=== PATIENT | female | born 2000 | race Caucasian/White ===

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

== ENCOUNTER 2021-02-18 13:25 | Emergency (ER) | payer BC, SELFPAY ==
[2021-02-18 16:06] LABS: Urine Blood Negative (Negative); Urine Glucose Negative (Negative); Urine Protein Trace (Negative); Urine Specific Gravity >=1.030 (1.005-1.030)
[2021-02-18 16:19] LABS: Absolute Lymphocytes (CBC) 1.7 K/uL (0.7-4.9); Basophils % 0.5 % (0-1.3); Hematocrit 39.7 % (36.0-45.0); Lymphocytes % 21.1 % (15.3-44.8); MPV 9.1 fL (7.6-11.3); RBC Red Blood Cell Count 4.57 M/uL (3.86-4.86)
[2021-02-18 16:24] LABS: Urine Specific Gravity/Preg >1.030 (1.005-1.030)
--- NOTE | 2021-02-18 16:24 | RAD REPORT ---
EXAM DESCRIPTION: Rick Single View02/18/2021 4:18 pm CLINICAL HISTORY: Palpitations COMPARISON: none FINDINGS: The lungs appear clear of acute infiltrate. The heart is normal size IMPRESSION: No acute abnormalities displayed
[2021-02-18 16:27] LABS: Protime INR 1.12
[2021-02-18] MEDS ORDERED: NA CHLORIDE 0.9% 1,000 ML ONE (16:29)
[2021-02-18 16:31] LABS: Barbiturates NEGATIVE (NEGATIVE); Benzodiazepines NEGATIVE (NEGATIVE); Cocaine NEGATIVE (NEGATIVE); METHAMPHETAM NEGATIVE (NEGATIVE); Methadone NEGATIVE (NEGATIVE); Opiates NEGATIVE (NEGATIVE); Phencyclidine NEGATIVE (NEGATIVE); THC Cannibis POSITIVE (NEGATIVE)
[2021-02-18 16:43] LABS: ALT/SGPT 19 U/L (12-78); AST/SGOT 10 U/L (15-37); Albumin 4.5 g/dL (3.4-5.0); Alkaline Phosphatase 61 U/L (45-117); BUN Blood Urea Nitrogen 12 mg/dL (7-18); Bicarbonate 27 mmol/L (21-32); Bilirubin Direct 0.1 mg/dL (0-0.2); Bilirubin Total 0.6 mg/dL (0.2-1.0); Glucose Level 85 mg/dL (74-106); Magnesium 2.1 mg/dL (1.8-2.4); Potassium 3.7 mmol/L (3.5-5.1); Protein, Total 8.1 g/dL (6.4-8.2); Sodium Level 139 mmol/L (136-145); Thyroid Stimulating Hormone 0.956 uIU/mL (0.360-3.740); Troponin (Emerg Dept Use Only) < 0.02 ng/mL (0.0-0.045)
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
[2021-02-18] MEDS ORDERED: ONDANSETRON 4 MG/2 ML VIAL ONE (17:44)
[2021-02-18 18:25] VITALS: BP 127/72; O2SAT 100
[2021-02-18 19:02] VITALS: TEMP 97.4
== END 2021-02-18 18:04 | disposition home or self-care (01) ==
LOC: ER 13:25
DX: F12.10 Cannabis abuse, uncomplicated (principal); R00.2 Palpitations
CPT/HCPCS: 85025; 80048; 36415; 83735; 81025; 85610; 80076; 80307 ×8; 84443; 81003; 84484; 71045; J7030; J2405; 96361; 96374; 99284

== ENCOUNTER 2021-09-22 13:59 | Emergency (ER) | payer BC ==
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
[2021-09-22 15:57] LABS: SARS-COV-2 RT PCR NEGATIVE (NEGATIVE)
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
[2021-09-22 16:54] VITALS: BP 112/63; TEMP 97.7; O2SAT 100
== END 2021-09-22 16:47 | disposition home or self-care (01) ==
LOC: ER 13:59
DX: R21 Rash and other nonspecific skin eruption (principal); Z20.822 Contact with and (suspected) exposure to COVID-19
CPT/HCPCS: 87070; 87081; 0240U; 99282

== ENCOUNTER 2022-08-25 18:58 | Emergency (ER) | payer BC ==
[2022-08-25] MEDS ORDERED: NA CHLORIDE 0.9% 1,000 ML ONE (20:25)
[2022-08-25 20:36] LABS: Absolute Lymphocytes (CBC) 1.3 K/uL (0.7-4.9); Lymphocytes % 12.8 % (15.3-44.8); MPV 8.1 fL (7.6-11.3); RBC Red Blood Cell Count 4.31 M/uL (3.86-4.86)
[2022-08-25 20:46] LABS: Urine Blood Negative (Negative); Urine Glucose Negative (Negative); Urine Protein Negative (Negative); Urine Specific Gravity >=1.030 (1.005-1.030); Urine pH 5.5 (5.0-7.0)
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
[2022-08-25 21:22] LABS: Potassium 3.4 mmol/L (3.5-5.1)
--- OUTSIDE RECORDS SUMMARY | 2022-08-25 22:18 | XMS REPORT | Continuity of Care Document ---
:2000 Author Organization [facility] Address [facility] [address] [place] [address] Care Team Providers Name Role Phone Victoriano Paez MD Attending Clinician VICTORIANO PAEZ Attending Clinician Unavailable VICTORIANO PAEZ Attending Clinician Unavailable ANNMARIE SAUL Attending Clinician Unavailable Payers Payer Name Policy Type Policy Number Effective Date Expiration Date S ource Problems Condition Condition Condition Status Onset Resolution Last Treating Co mments Source Name Details Category Date Date Treatment Clinician Date No known No known Disease Unive rs active active ity of problems problems [facility] Allergies, Adverse Reactions, Alerts Allergy Allergy Status Severity Reaction(s) Onset Inactive Treating Comm ents Source Name Type Date Date Clinician NO KNOWN Drug Active Univers ALLERGIE Class ity of [facility] Social History Social Habit Start Date Stop Date Quantity Comments Source Exposure to Not sure [facility] SARS-CoV-2 (event) [facility] Tobacco use and 2021-05-09 2021-05-09 Never used [facility] exposure 00:00:00 00:00:00 [facility] Tobacco Comment 2021-04-29 2021-04-29 vapes [facility] 00:00:00 00:00:00 [facility] Sex Assigned At [birth year] [facility] 00:00:00 00:00:00 [facility] Smoking Status Start Date Stop Date Source Never smoker [facility] Medications Ordered Filled Start Stop Current Ordering Indication Dosage Frequency Signature Comments Components Source Medication Medication Date Date Medication? Clinician (SIG) Name Name No known No Univers medications [facility] No known No [facility] medications [facility] No known No Univers medications [facility] No known No Univers medications [facility] Vital Signs Vital Name Observation Time Observation Value Comments Source Systolic blood 2021-04-29 21:30:00 108 [facility]Hg[facility] 2021-04-29 21:30:00 63 mm[Hg] [facility] rate 2021-04-29 21:30:00 76 /min [facility] Body weight 2021-04-29 21:30:00 83.008 kg [facility] Systolic blood 2021-03-18 15:35:00 100 mm[facility]Hg[facility] Diastolic blood 2021-03-18 15:35:00 67 mm[Hg] [facility] Heart rate 2021-03-18 15:35:00 68 /min [facility] Body height 2021-03-18 15:35:00 165.1 cm [facility] Body weight 2021-03-18 15:35:00 83.008 kg [facility] BMI 2021-03-18 15:35:00 30.45 kg/m2 [facility] Procedures Procedure Date / Time Performed Performing Clinician Sourc e XR CERVICAL SPINE 2 2021-03-18 16:46:48 Victoriano Paez [facility] Encounters Start End Encounter Admission Attending Care Care Encounter Source Date/Time Date/Time Type Type Clinicians Facility Department ID 2021-04-29 2021-04-29 Office Philippe [facility] [id number] Univers 16:25:12 16:50:55 Visit Victoriano Camacho [id number] cj [facility] [id number] [facility] eleonora Summersio [id number] [facility]ical [facility] [address] 2021-04-29 2021-04-29 Outpatient VICTORIANO ACOSTA [facility] [id number] Univers 16:20:00 16:20:00 VICTORIANO PAEZ [facility] 2021-04-15 2021-04-15 Outpatient Stanley SAUL [facility] [id number] Univers 11:30:00 11:30:00 ANNMARIE corona o f [facility] 2021-03-18 2021-03-18 [facility] Philippe [facility] [id number] [facility] 11:25:44 23:59:00 [id number] [facility] [place] [id number] [place] [address] 2021-03-18 2021-03-18 Office Philippe [facility] [id number] [facility] 10:25:56 11:06:51 Visit Victoriano Camacho [id number] [facility] [id number] [facility] Professio [id number] Ma dical nal [address] 2021-03-18 2021-03-18 Outpatient R VICTORIANO PAEZ [facility] [id number] [facility] 10:00:00 10:00:00 VICTORIANO PAEZ [facility] Results Test Description Test Time Test Comments Results Result Sour e Comments XR CERVICAL SPINE 2021-02-24 On the lateral Un iversity of 2 VW 4 view, cervical [facility] 17:03:18 spine can be Branch visualized to [...] of the cervical spine wereobtained. COMPARISON: None. [facility], Radiant Results Inft User - 03/18/2021 12:04 [...]
[2022-08-25] MEDS ORDERED: POTASSIUM 25 MEQ EFFERV TAB ONE (22:21)
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
[2022-08-25 22:57] VITALS: TEMP 99.1; O2SAT 100
[2022-08-25 23:09] VITALS: BP 105/61
--- NOTE | 2022-08-28 06:04 | EKG ---
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
== END 2022-08-25 22:37 | disposition home or self-care (01) ==
LOC: ER 18:58
DX: O9A.211 Injury, poisoning and certain other consequences of external causes complicating pregnancy, first trimester (principal); S00.83XA Contusion of other part of head, initial encounter; R55 Syncope and collapse; Z3A.12 12 weeks gestation of pregnancy
CPT/HCPCS: 93005; 85025; 80048; 36415; 86900; 86901; 84702; 81003; 70450; 72125; 96360; 99284; J7030

== ENCOUNTER 2022-09-02 19:12 | Emergency (ER) | payer BC ==
--- OUTSIDE RECORDS SUMMARY | 2022-09-02 19:15 | XMS REPORT | Continuity of Care Document ---
:2000 Author Organization [facility] Address [address] [place] [address] [address] [place] [address] Care Team Providers Name Role Phone Victoriano [...] rs active active ity of problems problems [facility] Allergies, Adverse Reactions, Alerts Allergy Allergy Status Severity Reaction(s) Onset Inactive Treating Comm ents Source Name Type Date Date Clinician NO KNOWN Drug Active [facility] Social History Social Habit Start Date Stop Date Quantity Comments Source Exposure to Not sure [facility] SARS-CoV-2 (event) [facility] Tobacco use and 2021-05-09 2021-05-09 Never used [facility] exposure 00:00:00 00:00:00 [facility] Tobacco Comment 2021-04-29 2021-04-29 vapes [facility] 00:00:00 00:00:00 [facility] Sex Assigned At [birth year] [facility] 00:00:00 00:00:00 [facility] Smoking Status Start Date Stop Date Source Never smoker [facility] Medications Ordered Filled Start Stop Current Ordering Indication Dosage Frequency Signature Comments Components Source Medication Medication Date Date Medication? Clinician (SIG) Name Name No known No Univers medications [facility] No known No [facility] medications [facility] No known No [facility] medications [facility] No known No [facility] medications [facility] Vital Signs Vital Name Observation Time Observation Value Comments Source Systolic blood 2021-04-29 21:30:00 108 mm[facility]Hg[facility] 2021-04-29 21:30:00 63 [facility]Hg[facility] 2021-04-29 21:30:00 76 /min [facility] Body weight 2021-04-29 21:30:00 83.008 kg [facility] Systolic blood 2021-03-18 15:35:00 100 mm[Hg] [facility] Diastolic blood 2021-03-18 15:35:00 67 mm[Hg] [facility] 2021-03-18 15:35:00 68 /min [facility] Body height 2021-03-18 15:35:00 165.1 cm [facility] Body weight 2021-03-18 15:35:00 83.008 kg [facility] BMI 2021-03-18 15:35:00 30.45 kg/m2 [facility] Procedures Procedure Date / Time Performed Performing Clinician Sourc e XR CERVICAL SPINE 2 2021-03-18 16:46:48 Victoriano Paez [facility] Encounters Start End Encounter Admission Attending Care Care Encounter Source Date/Time Date/Time Type Type Clinicians Facility Department ID 2021-04-29 2021-04-29 Office Philippe LATIARA [id number] [facility] 16:25:12 16:50:55 Visit Victoriano Camacho [id number] [facility] [id number] Jose Luis s Professio [id number] In dical nal [address] 2021-04-29 2021-04-29 Outpatient VICTORIANO ACOSTA [facility] [id number] [facility] 16:20:00 16:20:[address] [facility] [place] [place] 2021-04-15 2021-04-15 Outpatient Stanley SAUL [facility] [id number] Univers 11:30:00 11:30:00 ANNMARIE corona o f [facility] 2021-03-18 2021-03-18 Hospital Philippe [facility] [id number] Univers 11:25:44 23:59:00 Encounter Victoriano Camacho [id number] [facility] [id number] [facility] [id number] [facility] [address] 2021-03-18 2021-03-18 Office Philippe [facility] [id number] Univers 10:25:56 11:06:51 Visit Victoriano Camacho [id number] ity [facility] [id number] [facility] Professio [id number] In dical nal [address] [facility] 2021-03-18 2021-03-18 Outpatient R VICTORIANO PAEZ [facility] [id number] Univers 10:00:00 10:00:00 VICTORIANO PAEZ [facility] Results Test Description Test Time Test Comments Results Result Sourc e Comments XR CERVICAL SPINE 2021-02-24 On the lateral Un iversity of 2 VW 4 view, cervical [facility] 17:03:18 spine can be Branch visualized to [...] of the cervical spine wereobtained. COMPARISON: None. [facility], Radiant Results Inft - 03/18/2021 12:04 PM CDTEXAMINATION: XR CERVICAL [...]
[2022-09-02 20:34] LABS: Absolute Lymphocytes (CBC) 1.8 K/uL (0.7-4.9); Lymphocytes % 18.3 % (15.3-44.8); MCV 86.5 fL (80-100); MPV 8.3 fL (7.6-11.3); RBC Red Blood Cell Count 4.16 M/uL (3.86-4.86)
[2022-09-02 20:38] LABS: Protime INR 1.02
--- NOTE | 2022-09-02 20:59 | RAD REPORT ---
EXAM DESCRIPTION: US - Matter Mert Tm 1 - 09/02/2022 8:48 pm CLINICAL HISTORY: VAGINAL BLEEDING Early . COMPARISON: <Comparisons> FINDINGS: A single gestational sac is seen within the uterus. The shape of the sac is within normal limits for gestational age. Within the sac is a single fetus with femur length of 1.3 cm, correlating to estimated gestational age of 13 weeks 5 days. Estimated date of delivery is 03/14/2023. Heart rate is 160 BPM. Developing posterior placenta. 2 cm subchorionic bleed likely present. The maternal adnexa and left ovary within normal limits. Normal Doppler blood flow was demonstrated t he left ovary. Right ovary was obscured by bowel gas. IMPRESSION: Single live early intrauterine gestation with estimated gestational age of 13 weeks 5 da ys, MELISSA 03/14/2023. 2 cm subchorionic bleed.
[2022-09-02 21:07] LABS: Urine Blood 2+ (Negative); Urine Glucose Negative (Negative); Urine Protein Negative (Negative); Urine Specific Gravity >=1.030 (1.005-1.030)
[2022-09-02 21:23] LABS: Urine Crystals Unidentified Few /HPF (None Seen); Urine Mucus Slight /HPF (None Seen); Urine RBC >50 /HPF (None Seen)
--- NOTE | 2022-09-02 21:36 | EDPHYS ---
Physician Documentation [facility] Name: Katerin Nix Age: 22 yrs Sex: Female : 2000 Arrival Date: 09/02/2022 Time: 19:16 Bed 13 Private MD: ED Physician Rocio Hammond HPI: 09/02 20:00 This 22 yrs old Female presents to ER via Ambulatory with complaints of cp Vaginal Bleeding, + Preg <12wks, Abdominal Cramping. 20:00 The patient presents to the emergency department with vaginal bleeding, that is heavy, cp reports using 3 pads or tampons per day. The estimated gestational age is 13 weeks. 20:00 course: care: private OB physician, Leakage of Fluid: none cp appreciated, Ultrasound: the patient had an ultrasound, which was normal. 20:00 Associated signs and symptoms: Pertinent positives: abdominal pain, Pertinent cp negatives: fever, vomiting. 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 - Social history:: Smoking status: Reported history of juuling and/or vaping. ROS: 20:05 Constitutional: Negative for body aches, chills, fever, poor PO intake. cp 20:05 Eyes: Negative for injury, pain, redness, and discharge. cp 20:05 ENT: Negative for drainage from ear(s), ear pain, sore throat, difficulty swallowing, difficulty handling secretions. 20:05 Cardiovascular: Negative for chest pain. 20:05 Respiratory: Negative for cough, shortness of breath, wheezing. 20:05 Abdomen/GI: Positive for abdominal cramps. 20:05 Back: Negative for pain at rest, pain with movement. 20:05 : Positive for vaginal bleeding, Negative for urinary symptoms. 20:05 Neuro: Negative for dizziness, headache, syncope, weakness. 20:05 All other systems are negative. Exam: 20:10 Constitutional: The patient appears in no acute distress, alert, awake, non-toxic, well cp developed, well nourished. 20:10 Head/Face: Normocephalic, atraumatic. cp 20:10 Eyes: Periorbital structures: appear normal, Conjunctiva: normal, no exudate, no injection, Sclera: no appreciated abnormality, Lids and lashes: appear normal, bilaterally. 20:10 ENT: External ear(s): are unremarkable, Nose: is normal, Mouth: Lips: moist, Oral mucosa: pink and intact, moist, Posterior pharynx: Airway: no evidence of obstruction, patent. 20:10 Chest/axilla: Inspection: normal. 20:10 Cardiovascular: Rate: normal, Rhythm: regular. 20:10 Respiratory: the patient does not display signs of respiratory distress, Respirations: normal, no use of accessory muscles, no retractions, labored breathing, is not present. 20:10 Abdomen/GI: Inspection: abdomen appears normal, Palpation: abdomen is soft and non-tender, in all quadrants. 20:10 Back: pain, is absent, ROM is normal. 21:34 : Pelvic Exam: External exam: is normal, Speculum exam: mild bleeding, os that is cp closed, discharge, bloody, the nurse was present for the exam. Vital Signs: 19:42 BP 105 / 50; Pulse 83; Resp 16; Temp 98.6; Pulse Ox 99% ; Weight 96.62 kg; Height 5 ft. jh5 5 in. (165.10 cm); Pain 6/10; 20:35 BP 102 / 55; Pulse 72; Resp 18 S; Pulse Ox 100% on R/A; as6 21:43 BP 120 / 72; Pulse 76; Resp 16; Pulse Ox 100% on R/A; jb4 19:42 Body Mass Index 35.44 (96.62 kg, 165.10 cm) jh5 MDM: 19:39 Patient medically screened. cp 20:00 Differential diagnosis: STD, threatened Ab, inevitable Ab, complete Ab, retained Ab. cp 21:33 Data reviewed: vital signs, nurses notes, lab test result(s), radiologic studies, cp ultrasound. Counseling: I had a detailed discussion with the patient and/or guardian regarding: the historical points, exam findings, and any diagnostic results supporting the discharge/admit diagnosis, lab results, radiology results, the need for outpatient follow up, an OB/Gyne specialist. ED course: Patient is Rh positive as noted from blood work from previous visit. Discussed lab work and US findings showing viable IUP and subchorionic bleed. Will discharge to home for continued monitoring and pelvic rest instructions. 09/02 19:41 Order name: Urine Microscopic Only; Complete Time: 21:36 09/02 21:36 Interpretation: Normal except: URBC >50. 09/02 19:58 Order name: Basic Metabolic Panel cp 09/02 19:58 Order name: CBC with Diff; Complete Time: 21:01 09/02 21:01 Interpretation: Reviewed. 09/02 19:58 Order name: Quantitative Hcg cp 09/02 20:13 Order name: PT-INR; Complete Time: 21:01 cp 09/02 20:13 Order name: Ptt, Activated; Complete Time: 21:01 cp 09/02 19:41 Order name: Urine Dipstick-Ancillary (obtain specimen); Complete Time: 21:07 cp 09/02 19:41 Order name: Urine Test (obtain specimen); Complete Time: 21:07 09/02 19:58 Order name: IV Saline Lock; Complete Time: 20:24 09/02 20:50 Order name: Matter Eval Tm 1; Complete Time: 21:01 EDMS 09/02 21:07 Order name: Urine Dipstick-Ancillary; Complete Time: 21:36 EDMS 09/02 19:58 Order name: Labs collected and sent; Complete Time: 20:24 09/02 19:58 Order name: NPO; Complete Time: 20:24 09/02 20:13 Order name: Pelvic Exam Setup; Complete Time: 20:39 cp Administered Medications: 21:14 Drug: Zofran (Ondansetron) 4 mg Route: IVP; Site: left antecubital; as6 Disposition Summary: 09/02/22 21:36 Discharge Ordered Location: Home cp Problem: new cp Symptoms: have improved cp Condition: Stable cp Diagnosis - Threatened cp Followup: cp - With: Private Physician - When: 2 - 3 days - Reason: Recheck today's complaints Discharge Instructions: - Discharge Summary Sheet cp - Care cp - Threatened Miscarriage cp - Vaginal Bleeding During , First Trimester cp - Activity Restriction During cp - Subchorionic Hematoma cp Forms: - Medication Reconciliation Form cp - Thank You Letter cp - Antibiotic Education cp - Prescription Opioid Use cp Signatures: Dispatcher [employer] EDMS Dax Rodriguez PA PA cp Rees, Jessica, RN RN jh5 Willam Cárdenas RN RN as6 Corrections: (The following items were deleted from the chart) 20:50 19:59 Transvaginal Ob+US.RAD.BRZ ordered. EDMS EDMS
--- NOTE | 2022-09-02 21:36 | ER ---
Nurse's Notes [facility] Name: Katerin Nix Age: 22 yrs Sex: Female : 2000 Arrival Date: 09/02/2022 Time: 19:16 Bed 13 Private MD: Diagnosis: Threatened Presentation: 09/02 19:42 Chief complaint: Patient states: cramps started 2 days ago, vaginal bleeding x1 hour jh5 going with heavy and thick bleeding on pad 3 in 1 hour. Coronavirus screen: Vaccine status: Patient reports being unvaccinated. Client denies travel out of the [place] in the last 14 days. Ebola Screen: Patient negative for fever greater than or equal to 101.5 degrees Fahrenheit, and additional compatible Ebola Virus Disease symptoms Patient denies exposure to infectious person. Patient denies travel to an Ebola-affected area in the 21 days before illness onset. Initial Sepsis Screen: Does the patient meet any 2 criteria? No. Patient's initial sepsis screen is negative. Does the patient have a suspected source of infection? No. Patient's initial sepsis screen is negative. Risk Assessment: Do you want to hurt yourself or someone else? Patient reports no desire to harm self or others. 19:42 Method Of Arrival: Ambulatory [facility] 19:42 Acuity: MAYRA 3 jh5 20:25 Onset of symptoms was September 02, 2022. as6 Triage Assessment: 19:44 General: Appears in no apparent distress. General: Appears uncomfortable, Behavior is jh5 calm, cooperative, appropriate for age. Pain: Complains of pain in abdomen. : Reports cramping, vaginal bleeding that is. 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 - Social history:: Smoking status: Reported history of juuling and/or vaping. Screenin:25 Abuse screen: Denies threats or abuse. Denies injuries from another. Nutritional as6 screening: No deficits noted. Tuberculosis screening: No symptoms or risk factors identified. Fall Risk None identified. Assessment: 20:34 General: Appears in no apparent distress. Behavior is calm, cooperative. Pain: as6 Complains of pain in abdomen Quality of pain is described as crampy. : Reports cramping, vaginal bleeding that is bright red, heavy flow. 21:43 Reassessment: Patient appears in no apparent distress at this time. Patient and/or jb4 family updated on plan of care and expected duration. Pain level reassessed. Patient is alert, oriented x 3, equal unlabored respirations, skin warm/dry/pink. Vital Signs: 19:42 BP 105 / 50; Pulse 83; Resp 16; Temp 98.6; Pulse Ox 99% ; Weight 96.62 kg; Height 5 ft. jh5 5 in. (165.10 cm); Pain 6/10; 20:35 BP 102 / 55; Pulse 72; Resp 18 S; Pulse Ox 100% on R/A; as6 21:43 BP 120 / 72; Pulse 76; Resp 16; Pulse Ox 100% on R/A; jb4 19:42 Body Mass Index 35.44 (96.62 kg, 165.10 cm) jh5 ED Course: 19:16 Patient arrived in ED. ja2 19:18 Dax Rodriguez PA is PHCP. cp 19:18 Rocio Hammond MD is Attending Physician. cp 19:27 Willam Cárdenas, HÉCTOR is Primary Nurse. as6 19:44 Triage completed. jh5 19:44 Arm band placed on right wrist. jh5 20:24 Inserted saline lock: 20 gauge in left antecubital area, using aseptic technique. Blood as6 collected. 20:25 Placed in gown. Bed in low position. Call light in reach. Side rails up X 1. as6 20:50 Matter Eval Tm 1 In Process Unspecified. EDMS 21:07 Urine Microscopic Only Sent. as6 21:31 Assist provider with pelvic exam: Set up pelvic tray. Performed by Dax CABALLERO as6 Patient tolerated well. 21:43 IV discontinued, intact, bleeding controlled, No redness/swelling at site. Pressure jb4 dressing applied. Administered Medications: 21:14 Drug: Zofran (Ondansetron) 4 mg Route: IVP; Site: left antecubital; as6 Medication: 21:43 VIS not applicable for this client. jb4 Outcome: 21:36 Discharge ordered by . cp 21:43 Discharged to home ambulatory. jb4 21:43 Condition: stable 21:43 Discharge instructions given to patient, Instructed on discharge instructions, follow up and referral plans. Demonstrated understanding of instructions, follow-up care. 21:44 Patient left the ED. jb4 Signatures: Dispatcher [employer] EDMS Dax Rodriguez PA PA cp Bryson, James, RN RN jb4 Tamara Puentes ja2 Tamara Hager, RN RN jh5 Willam Cárdenas RN RN as6
[2022-09-02 21:59] LABS: Potassium 3.6 mmol/L (3.5-5.1)
[2022-09-02 23:09] VITALS: TEMP 98.6
[2022-09-02 23:22] VITALS: O2SAT 100
[2022-09-02 23:23] VITALS: BP 120/72
== END 2022-09-02 21:44 | disposition home or self-care (01) ==
LOC: ER 19:12
DX: O20.0 Threatened abortion (principal); Z3A.13 13 weeks gestation of pregnancy; Z87.891 Personal history of nicotine dependence
CPT/HCPCS: 36415; 76801; 80048; 81003; 81015; 84702; 85025; 85610; 85730; 96374; 99284

== ENCOUNTER 2022-09-24 22:04 | Emergency (ER) | payer BC ==
--- OUTSIDE RECORDS SUMMARY | 2022-09-24 22:18 | XMS REPORT | Continuity of Care Document ---
:2000 Author Organization [facility] t Address [address] [place] [address] Dr. Nicole. [address] [place] [address] Care Team Providers Name Role Phone ANTOINETTE RUSS Primary Care Physician Unavailable GISEL ASCENCIO Attending Clinician Unavailable Pcp, Patient Does Not Have A Attending Clinician [phone] Victoriano Paez MD Attending Clinician VICTORIANO PAEZ Attending Clinician Unavailable VICTORIANO PAEZ Attending Clinician Unavailable ANNMARIE SAUL Attending Clinician Unavailable Payers Payer Name Policy Type Policy Number Effective Date Expiration Date S [facility] [id number] 2020 00:00:00 Problems Condition Condition Condition Status Onset Resolution Last Treating Co mments Source Name Details Category Date Date Treatment Clinician Date No known No known Disease Unive rs active active ity of problems problems [facility] Allergies, Adverse Reactions, Alerts Allergy Allergy Status Severity Reaction(s) Onset Inactive Treating Comm ents Source Name Type Date Date Clinician NO KNOWN Drug Active Univers ALLERGIE Class ity of S [facility] Social History Social Habit Start Date Stop Date Quantity Comments Source Exposure to Not sure University SARS-CoV-2 [facility] (event) [place] Tobacco use and 2021-04-29 2021-04-29 Smokeless tobacco Un iversity of exposure 00:00:00 00:00:00 non-user [facility] Tobacco Comment 2021-04-29 2021-04-29 vapes Universit y of 00:00:00 00:00:00 [facility] Sex Assigned At 2000 2000 Universit y of 00:00:00 00:00:00 [facility] Smoking Status Start Date Stop Date Source Never smoked tobacco [facility] Medications Ordered Filled Start Stop Current Ordering Indication Dosage Frequency Signature Comments Components Source Medication Medication Date Date Medication? Clinician (SIG) Name Name No known No No known Unive rs medications 7-05 medication it y of 16:30: s [address] No known No Univers medications [facility] No known No Univers medications [facility] No known No Univers medications [facility] No known No Univers medications [facility] Vital Signs Vital Name Observation Time Observation Value Comments Source Systolic blood 2021-04-29 21:30:00 108 mm[Hg[facility] 2021-04-29 21:30:00 63 mm[Hg] Unive [facility] Heart rate 2021-04-29 21:30:00 76 /min [facility] Body weight 2021-04-29 21:30:00 83.008 kg [facility] Systolic blood 2021-03-18 15:35:00 100 mm[Hg] Univer [facility] Diastolic blood 2021-03-18 15:35:00 67 mm[Hg] Unive [facility] Heart rate 2021-03-18 15:35:00 68 /min [facility] Body height 2021-03-18 15:35:00 165.1 cm [facility] Body weight 2021-03-18 15:35:00 83.008 kg [facility] BMI 2021-03-18 15:35:00 30.45 kg/m2 [facility] Procedures Procedure Date / Time Performed Performing Clinician Lisette e XR CERVICAL SPINE 2 2021-03-18 16:46:48 Victoriano Paez [facility] Encounters Start End Encounter Admission Attending Care Care Encounter Source Date/Time Date/Time Type Type Clinicians Facility Department ID 2022-09-26 2022-09-26 Outpatient Stanley ASCENCIO [facility] [id number] Univers 14:45:00 14:45:00 GISEL [facility] 2022-09-22 2022-09-22 Telephone Pcp, 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 [id number] it y of Does [facility] [id number] MATERNAL [id number] Med ical & CHILD [address] [place] [address] 2021-04-29 2021-04-29 [facility] [id number] Univers 16:25:12 16:50:55 Visit Victoriano Rufino Camacho [id number] it[id number] [phone] Ak dicla nal [address] [place] [address] 2021-04-29 2021-04-29 Outpatient R VICTORIANO PAEZ [facility] [id number] Univers 16:20:00 16:20:00 VICTORIANO PAEZ [facility] 2021-04-15 2021-04-15 Outpatient Stanley SAUL [facility] [id number] Univers 11:30:00 11:30:00 CHILVANA victor manuely o f [facility] 2021-03-18 2021-03-18 [facility] [id number] Univers 11:25:44 23:59:00 Encounter Victoriano Rufino Camacho [id number] [id number] [id number] [facility] [address]07 [place] 2021-03-18 2021-03-18 [facility] [id number] Univers 10:25:56 11:06:51 Visit Victoriano Camacho [id number] it[id number] [id number] Ak dical nal [address] [place] [address] 2021-03-18 2021-03-18 Outpatient VICTORIANO ACOSTA [facility] [id number] Univers 10:00:00 10:00:00 VICTORIANO PAEZ [facility] Results Test Description Test Time Test Comments Results Result [facility] e Comments XR CERVICAL SPINE 2021-02-24 On the lateral Un iversity of 2 VW 4 view, cervical [place] [facility] 17:03:18 spine can be Branch visualized [...] of the cervical spine wereobtained. COMPARISON: None. [facility], Radiant Results Inft User - 03/18/2021 [...]
[2022-09-24 22:58] LABS: Urine Blood Trace-lysed (Negative); Urine Glucose Negative (Negative); Urine Protein Negative (Negative); Urine Specific Gravity >=1.030 (1.005-1.030); Urine pH 5.5 (5.0-7.0)
[2022-09-24 23:58] LABS: Urine Specific Gravity/Preg >1.030 (1.005-1.030)
--- NOTE | 2022-09-25 00:01 | ER ---
Nurse's Notes [facility] Name: Katerin Nix Age: 22 yrs Sex: Female : 2000 Arrival Date: 09/24/2022 Time: 22:07 Bed 8 Private MD: Diagnosis: 18 weeks gestation of Presentation: 09/24 22:17 Chief complaint: Patient states: About an hour ago i started having some vaginal kd3 bleeding. this is my first . Parent and/or Guardian states: She's already had some complications with this . she has been having lower abdominal pain that she says is like pressure. She said that about an hour ago she wiped after using the bathroom and she had blood on the toilet paper. She is right at 16 weeks. Chief complaint: Parent and/or Guardian states: They told her at her last visit that she had cysts. Coronavirus screen: Vaccine status: Patient reports being unvaccinated. Ebola Screen: No symptoms or risks identified at this time. Initial Sepsis Screen: Does the patient meet any 2 criteria? No. Patient's initial sepsis screen is negative. Does the patient have a suspected source of infection? No. Patient's initial sepsis screen is negative. Risk Assessment: Do you want to hurt yourself or someone else? Patient reports no desire to harm self or others. Onset of symptoms was September 24, 2022. 22:17 Method Of Arrival: Ambulatory kd3 22:17 Acuity: MAYRA 3 kd3 Triage Assessment: 22:21 General: Appears in no apparent distress. Behavior is calm, cooperative. Pain: kd3 Complains of pain in suprapubic area, right lower quadrant and left lower quadrant. Neuro: Level of Consciousness is awake, alert, obeys commands, Oriented to person, place, time, situation. Respiratory: Airway is patent Trachea midline Respiratory effort is even, unlabored. GI: Abdomen is non-distended, Reports lower abdominal pain. 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 - Social history:: Smoking status: unknown. Screenin:14 Abuse screen: Denies threats or abuse. Denies injuries from another. ha1 22:14 Nutritional screening: No deficits noted. Tuberculosis screening: No symptoms or risk ha1 factors identified. Fall Risk None identified. Assessment: 22:14 General: Appears comfortable, Behavior is calm, cooperative. Pain: Complains of pain in ha1 lower abdominal Pain does not radiate. Pain. Neuro: Level of Consciousness is awake, alert, obeys commands, Oriented to person, place, time, situation. Cardiovascular: Capillary refill < 3 seconds Patient's skin is warm and dry. Respiratory: Airway is patent Trachea midline Respiratory effort is even, unlabored, Respiratory pattern is regular, symmetrical. GI: No signs and/or symptoms were reported involving the gastrointestinal system. Abdomen is round non-distended, Bowel sounds present X 4 quads. Abd is soft and non tender X 4 quads. : Urine is clear, Reports vaginal bleeding that is light flow. EENT: No deficits noted. No signs and/or symptoms were reported regarding the EENT system. Derm: Skin is pink, warm \T\ dry. Musculoskeletal: Circulation, motion, and sensation intact. Range of motion: intact in all extremities. 23:15 Reassessment: Patient and/or family updated on plan of care and expected duration. Pain ha1 level reassessed. Patient is alert, oriented x 3, equal unlabored respirations, skin warm/dry/pink. Vital Signs: 22:23 BP 106 / 49; Pulse 86; Resp 17; Temp 98.5(O); Pulse Ox 100% on R/A; Weight 96.62 kg; kd3 Height 5 ft. 5 in. (165.10 cm); Pain 7/10; 23:17 BP 104 / 58; Pulse 85; Resp 16 S; Pulse Ox 100% on R/A; ha1 12 00:12 BP 123 / 67; Pulse 62; Resp 16; Pulse Ox 100% on R/A; kd3 09/24 22:23 Body Mass Index 35.44 (96.62 kg, 165.10 cm) kd3 ED Course: 09/24 22:07 Patient arrived in ED. bp1 22:09 Tracy Maldonado FNP-C is PHCP. snw 22:09 Dax Darnell MD is Attending Physician. snw 22:14 Patient has correct armband on for positive identification. Placed in gown. Bed in low ha1 position. Call light in reach. Side rails up X 1. Adult w/ patient. 22:17 Chaya Duron, RN is Primary Nurse. kd3 22:21 Triage completed. kd3 22:26 Arm band placed on right wrist. kd3 23:06 Urine Dipstick-Ancillary Sent. ha1 23:06 HCG, Quantitative Sent. ha1 09/25 00:07 OB Limited US In Process Unspecified. EDMS 00:12 No provider procedures requiring assistance completed. Patient did not have IV access kd3 during this emergency room visit. Administered Medications: No medications were administered Medication: 00:13 VIS not applicable for this client. kd3 Outcome: 00:00 Discharge ordered by . snw 00:13 Discharged to home ambulatory. kd3 00:13 Condition: stable 00:13 Discharge instructions given to patient, family, Instructed on discharge instructions, follow up and referral plans. Demonstrated understanding of instructions, follow-up care. 00:13 Patient left the ED. kd3 Signatures: Dispatcher [employer] EDKY Tracy Maldonado, CHIEF FISHERY DIVISION-C CHIEF FISHERY DIVISION-Csnw Elisa [facility]ste[facility] Chaya Duron, RN RN kd3 Cecy Currie, RN RN ha1
--- NOTE | 2022-09-25 00:01 | EDPHYS ---
Physician Documentation [facility] Name: Katerin Nix Age: 22 yrs Sex: Female : 2000 Arrival Date: 09/24/2022 Time: 22:07 Bed 8 Private MD: RADHA Physician Dax Darnell HPI: 09/24 22:41 This 22 yrs old Female presents to ER via Ambulatory with complaints of snw Abdominal Pain, Vaginal Bleeding, + 16 weeks preg. 22:41 The patient presents with vaginal bleeding that is spotting. Onset: The snw symptoms/episode began/occurred suddenly, today. Associated signs and symptoms: Pertinent positives: vaginal bleeding. Severity of symptoms: At their worst the symptoms were very mild. The patient is sexually active. The patient has experienced a previous episode, 3 weeks ago. 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 - Social history:: Smoking status: unknown. ROS: 22:39 Constitutional: Negative for fever, chills, and weight loss, Eyes: Negative for injury, snw pain, redness, and discharge, ENT: Negative for injury, pain, and discharge, Neck: Negative for injury, pain, and swelling, Cardiovascular: Negative for chest pain, palpitations, and edema, Respiratory: Negative for shortness of breath, cough, wheezing, and pleuritic chest pain, Abdomen/GI: Negative for abdominal pain, nausea, vomiting, diarrhea, and constipation, Back: Negative for injury and pain, MS/Extremity: Negative for injury and deformity, Skin: Negative for injury, rash, and discoloration, Neuro: Negative for headache, weakness, numbness, tingling, and seizure, Psych: Negative for depression, anxiety, suicide ideation, homicidal ideation, and hallucinations. 22:39 : Positive for scant vaginal bleeding post void with lower abd pressure today. Pt has experienced this before. qHCG 24,000 three weeks ago. Pt is B positive. Exam: 22:39 Constitutional: This is a well developed, well nourished patient who is awake, alert, snw and in no acute distress. Head/Face: Normocephalic, atraumatic. Eyes: Pupils equal round and reactive to light, extra-ocular motions intact. Lids and lashes normal. Conjunctiva and sclera are non-icteric and not injected. Cornea within normal limits. Periorbital areas with no swelling, redness, or edema. ENT: Nares patent. No nasal discharge, no septal abnormalities noted. Tympanic membranes are normal and external auditory canals are clear. Oropharynx with no redness, swelling, or masses, exudates, or evidence of obstruction, uvula midline. Mucous membranes moist. Neck: Trachea midline, no thyromegaly or masses palpated, and no cervical lymphadenopathy. Supple, full range of motion without nuchal rigidity, or vertebral point tenderness. No Meningismus. Chest/axilla: Normal chest wall appearance and motion. Nontender with no deformity. No lesions are appreciated. Cardiovascular: Regular rate and rhythm with a normal S1 and S2. No gallops, murmurs, or rubs. Normal PMI, no JVD. No pulse deficits. Respiratory: Lungs have equal breath sounds bilaterally, clear to auscultation and percussion. No rales, rhonchi or wheezes noted. No increased work of breathing, no retractions or nasal flaring. Back: No spinal tenderness. No costovertebral tenderness. Full range of motion. Skin: Warm, dry with normal turgor. Normal color with no rashes, no lesions, and no evidence of cellulitis. MS/ Extremity: Pulses equal, no cyanosis. Neurovascular intact. Full, normal range of motion. Neuro: Awake and alert, GCS 15, oriented to person, place, time, and situation. Cranial nerves II-XII grossly intact. Motor strength 5/5 in all extremities. Sensory grossly intact. Cerebellar exam normal. Normal gait. 22:39 Abdomen/GI: Inspection: abdomen appears normal, Bowel sounds: normal, Palpation: mild abdominal tenderness, in the suprapubic area. Vital Signs: 22:23 BP 106 / 49; Pulse 86; Resp 17; Temp 98.5(O); Pulse Ox 100% on R/A; Weight 96.62 kg; kd3 Height 5 ft. 5 in. (165.10 cm); Pain 7/10; 23:17 BP 104 / 58; Pulse 85; Resp 16 S; Pulse Ox 100% on R/A; ha1 09/25 00:12 BP 123 / 67; Pulse 62; Resp 16; Pulse Ox 100% on R/A; kd3 09/24 22:23 Body Mass Index 35.44 (96.62 kg, 165.10 cm) kd3 MDM: 09/24 22:19 Patient medically screened. snw 09/25 00:01 Data reviewed: vital signs, nurses notes. Data interpreted: Pulse oximetry: on room air snw is 100 %. Interpretation: normal. Counseling: I had a detailed discussion with the patient and/or guardian regarding: the historical points, exam findings, and any diagnostic results supporting the discharge/admit diagnosis, lab results, radiology results, the need for outpatient follow up, to return to the emergency department if symptoms worsen or persist or if there are any questions or concerns that arise at home. Special discussion: Based on the patient's Hx, exam, and Dx evaluation, there is no indication for emergent surgery or inpatient Tx. It is understood by the patient/guardian that if the Sx's persist or worsen they need to return immediately for re-evaluation. Based on the history and exam findings, there is no indication for further emergent testing or inpatient evaluation. I discussed with the patient/guardian the need to see the OB Gyne specialist for further evaluation of the symptoms. 09/24 22:58 Order name: Urine Dipstick-Ancillary; Complete Time: 23:02 EDHI 09/24 22:59 Order name: Urine --Ancillary (enter results); Complete Time: 00:00 09/24 23:00 Order name: Urine Dipstick-Ancillary EDHI 09/24 23:00 Order name: HCG, Quantitative; Complete Time: 23:38 EDHI 09/24 22:19 Order name: OB Limited snw Administered Medications: No medications were administered Disposition Summary: 09/25/22 00:00 Discharge Ordered Location: Home snw Condition: Stable snw Diagnosis - 18 weeks gestation of snw Followup: snw - With: Emergency Department - When: As needed - Reason: Worsening of condition Followup: snw - With: Private Physician - When: 1 - 2 days - Reason: Recheck today's complaints, Continuance of care, Re-evaluation by your physician Discharge Instructions: - Discharge Summary Sheet snw - Abdominal Pain During snw - Care snw Forms: - Medication Reconciliation Form snw - Thank You Letter snw - Antibiotic Education snw - Prescription Opioid Use snw Addendum: 09/28/2022 07:53 Co-signature as Attending Physician, Dax Darnell MD I agree with the assessment and c campos plan of care. Signatures: Dispatcher [employer] EDMS Dax Darnell MD MD cha Waters, Shelly, PLASTICS FABRICATOR AND ASSEMBLER-C PLASTICS FABRICATOR AND ASSEMBLER-Csnw Chaya Duron, RN RN kd3 Corrections: (The following items were deleted from the chart) 09/24 23:59 23:25 QUANTITATIVE HCG+C.LAB.BRZ ordered. EDHI EDHI
[2022-09-25 00:27] VITALS: TEMP 98.5; O2SAT 100
[2022-09-25 00:29] VITALS: BP 123/67
--- NOTE | 2022-09-25 19:47 | RAD REPORT ---
EXAM DESCRIPTION: US - OB Limited - 09/25/2022 12:03 am CLINICAL HISTORY: The patient is 22 years old and is Female; ABD CRAMPING, TECHNIQUE: Real-time limited ultrasound of the maternal uterus with image documentation. COMPARISON: No relevant prior studies available. FINDINGS: GESTATIONAL AGE: Gestational age is 18 weeks 1 day based on ultrasound composite. POSITION: Single intrauterine gestation is present. HEART RATE: heart rate 157 bpm. PLACENTA: The placenta is posterior in location. CERVIX: The cervix is closed measuring 3.5 cm. IMPRESSION: Single IUP at 18 weeks 1 day with heart rate 157 bpm. Electronically signed by: Clarisa Kline MD 09/25/2022 12:26 AM RESIDENT CARE ASSOCIATE Due to temporary technical issues with the PACS/Fluency reporting system, reports are being signed by the in house radiologists without review as a courtesy to insure prompt reporting. The interpreting radiologist is fully responsible for the content of the report.
== END 2022-09-25 00:13 | disposition home or self-care (01) ==
LOC: ER 22:04
DX: O26.892 Other specified pregnancy related conditions, second trimester (principal); Z3A.18 18 weeks gestation of pregnancy
CPT/HCPCS: 36415; 76815; 81003; 81025; 84702; 99283

== ENCOUNTER 2023-06-10 22:02 | Emergency (ER) | payer BC, OTHER ==
--- OUTSIDE RECORDS SUMMARY | 2023-06-10 22:08 | XMS REPORT | Continuity of Care Document ---
:2000 Author Organization [facility] t Address [address] [place] [address] [place] [id number] Care Team Providers Name Role Phone KEKE ASCENCIO Primary Care Physician Unavailable GUS MORRELL Attending Clinician Unavailable DAVI MAZARIEGOS Attending Clinician Unavailable Davi Mazariegos MD Attending Clinician Doctor Unassigned, [place] Attending Clinician Unavailable Gus Morrell MD Attending Clinician KENDRA HENAO Attending Clinician Unavailable Akinsinaya Kendra OVALLE Attending Clinician [phone] KRISTIE SMITH Attending Clinician Unavailable Kristie Smith MD Attending Clinician [phone] Ronnie Hernadez MD Attending Clinician Roman Erazo MD Attending Clinician Pool Valladares MD Attending Clinician [phone] GEORGES GALVEZ Attending Clinician Unavailable KEKE ASCENCIO Attending Clinician Unavailable Keke Ascencio CNM Attending Clinician Provider, Homero Patel Attending Clinician Unavailable LabHomero Attending Clinician Unavailable SVETLANA AHN Attending Clinician Unavailable Ultrasound, Amalia Attending Clinician Unavailable Svetlana Ahn MD Attending Clinician Pcp, Patient Does Not Have A Attending Clinician [phone] Victoriano Paez MD Attending Clinician VICTORIANO PAEZ Attending Clinician Unavailable VICTORIANO PAEZ Attending Clinician Unavailable ANNMARIE SAUL Attending Clinician Unavailable KRISTIE SMITH Admitting Clinician Unavailable Kristie Smith MD Admitting Clinician [phone] Payers Payer Name Policy Type Policy Number Effective Date Expiration Date Anurag mcfarlane FORMERLY [facility], 1928–1983 [id number] 2022 [place]ICE [place] ST[place] 00:00:00 Problems Condition Condition Condition Status Onset Resolution Last Treating Co mments Source Name Details Category Date Date Treatment Clinician Date Other Other Disease Active Univers general general 6-21 [place] of counseling [place] and advice and advice 00 Me dical for for Branch contracept contracept melba melba management management Routine Routine Disease Active Univers 5-30 [place] of [place] [facility] Disease Active Univers (spontaneo (spontaneo 5-07 [place] of [place] vaginal [place] 00 [facility] Single Single Disease Active Univers liveborn liveborn 5-07 ity of infant 00:00: [place] 00 [facility] 39 weeks 39 weeks Disease Active Unive rs gestation gestation 5-05 ity of of of 00:00: [place] 00 [facility] Pain of Pain of Disease Active Univers round round 1-01 ity of ligament ligament 00:00: [place] during during 00 Medical Bran ch Maternal Maternal Disease Active 2021-10 Unive rs varicella, varicella, 2-07 it y of non-immune non-immune 00:00[place] 00 [facility] Obesity Obesity Disease Active 2021-10 Univers affecting affecting 2-04 [place] [facility] Nausea and Nausea and Disease Active 2021-10 U nivers vomiting vomiting 2-04 ity of of of 00:00: [place] , , 00 Me dical antepartum antepartum Br anch Vaginal Vaginal Disease Active 2021-10 Univers bleeding bleeding 2-04 ity of in in 00:00: [place] 00 [facility] Obesity Obesity Disease Active 2021-10 Univers (BMI (BMI 2-04 ity of 30-39.9) 30-39.9) 00:00: [place] 00 [facility] No known No known Disease Unive rs active active ity of problems problems [facility] Allergies, Adverse Reactions, Alerts Allergy Allergy Status Severity Reaction(s) Onset Inactive Treating Comm ents Source Name Type Date Date Clinician NO KNOWN Drug Active Univers ALLERGIE Class ity of S [facility] Social History Social Habit Start Date Stop Date Quantity Comments Source ASSERTION 2022-06-09 [facility] 00:00:00 [facility] Gender identity Universit y of [facility] History of tobacco Cigarette Smoker [place] of use [facility] Alcohol intake 2023-06-09 2023-06-09 Ex-drinker [facility] 00:00:00 00:00:00 (finding) [facility] Exposure to 2023-03-14 2023-03-24 Not sure [facility] SARS-CoV-2 (event) 00:00:00 08:29:00 [facility] Tobacco use and 2022-09-26 2022-09-26 Smokeless Universit y of exposure 00:00:00 00:00:00 tobacco non-user [facility] Tobacco Comment 2022-09-26 2022-09-26 vapes Universit y of 00:00:00 00:00:00 [facility] History of Social 2022-09-26 2022-09-26 Univers ity of function 00:00:00 00:00:00 [facility] Sex Assigned At 2000 2000 Universit y of 00:00:00 00:00:00 [facility] Smoking Status Start Date Stop Date Source Ex-smoker 2022-09-26 00:00:00 2022-09-26 00:00:00 Universi ty [facility] Never smoked tobacco [facility] Medications Ordered Filled Start Stop Current Ordering Indication Dosage Frequency Signature Comments Components Source Medication Medication Date Date Medication? Clinician (SIG) Name Name iopamidol 2022- No [id number] 100mL 100 mL, Univers (ISOVUE 8-15 08-15 Intravenou ity o f 370-500 mL) 10:15: 10:15 s, ONCE, 1 [place] injection 00 :00 dose, On Medica l 100 mL Tu Branch 06/09/23 at 0515, Routine ketorolac 2022-0 202- No 30mg 30 mg, Unive rs (TORADOL) 06-09-15 Slow IV ity of injection 09:30: 08:28 Push, [place] 30 mg 00 :00 ONCE, 1 Medical dose, On Branch 06/09/23 at 0430, Routine ondansetron 2022-0 202- No 4mg 4 mg, Slow Univers (ZOFRAN 06-09-15 IV Push, ity of (PF)) 08:30: 08:28 ONCE, 1 [place] injection 4 00 :00 dose, On Medi nataliia mg Branch 06/09/23 at 0330, AARON ketorolac 2022-0 Yes [id number] 10mg Take 1 U nivers 10 mg 8-15 tablet by ity of tablet 00:00: mouth [place] 00 every 6 Medical (six) Branch hours as needed for Pain (scale 7-10). dicyclomine 3-0 Yes [id number] 20mg Take 1 Univers 20 mg 8-15 tablet by ity of tablet 00:00: mouth [place] 00 every 6 Medical (six) Branch hours as needed for Abdominal pain. ondansetron 3-0 Yes [id number] 4mg Take 1 Univers (ZOFRAN) 4 8-15 tablet by ity of mg tablet 00:00: mouth [place] 00 every 8 Medical (eight) Branch hours as needed for Nausea and Vomiting (N/V). ketorolac 3-0 Yes [id number] 10mg Take 1 U nivers 10 mg 8-15 tablet by ity of tablet 00:00: mouth [place] 00 every 6 Medical (six) Branch hours as needed for Pain (scale 7-10). dicyclomine 2023-0 Yes [id number] 20mg Take 1 Univers 20 mg 8-15 tablet by ity of tablet 00:00: mouth [place] 00 every 6 Medical (six) Branch hours as needed for Abdominal pain. ondansetron 2023-0 Yes [id number] 4mg Take 1 Univers (ZOFRAN) 4 8-15 tablet by ity of mg tablet 00:00: mouth [place] 00 every 8 Medical (eight) Branch hours as needed for Nausea and Vomiting (N/V). varicella 2023-0 Yes 1{each} 0.5 mL (1 Univers virus 5-07 Each), ity of vaccine 12:29: [place] live 12 , Medical (VARIVAX) ONCE-PRIOR Bran ch injection TO and diluent DISCHARGE, vial 1 dose, Starting on 03/01/23 at 0729, Until Discontinu ed, Routine, Give vaccine prior to discharge lactated 0 2022- No 500mL at 999 Unive rs ringers IV 5-07 05-07 mL/hr, 500 it y of infusion 02:30: 01:55 mL, [place] 500 mL 00 :00 Intravenou Medical s, ONCE, 1 Branch dose, On 02/28/23 at 2130, Routine Yes [id number] 1{tbl} Take 1 Univers vitamin 5-07 tablet by ity of w/FA tablet 00:00: mouth in [place] 00 the Medical morning. Branch docusate Yes [id number] 200mg Take 2 U nivers 100 mg 5-07 capsules ity of capsule 00:00: by mouth [place] 00 once daily Medical as needed Branch for Constipati on. ferrous Yes [id number] 325mg Take 1 Un maria eug[place] sulfate 325 5-07 tablet by ity of mg (65 mg 00:00: [facility] Medical tablet morning Branch and 1 tablet in the evening. ibuprofen Yes [id number] 600mg Take 1 Univers 600 mg 5-07 tablet by ity of tablet 00:00: mouth [place] 00 every 6 Medical (six) Branch hours as needed (Pain). Take with food or milk. Yes [id number] 1{tbl} Take 1 Univers vitamin 5-07 tablet by ity of w/FA tablet 00:00: mouth in [place] 00 the Medical morning. Branch docusate 0 Yes [id number] 200mg Take 2 U nivers 100 mg 5-07 capsules ity of capsule 00:00: by mouth [place] 00 once daily Medical as needed Branch for Constipati on. ferrous 0 Yes [id number] 325mg Take 1 Un maria [place] sulfate 325 5-07 tablet by ity of mg (65 mg 00:00: mouth in [facility] iron) 00 the Medical tablet morning Branch and 1 tablet in the evening. ibuprofen 2022-0 Yes [id number] 600mg Take 1 Univers 600 mg 5-07 tablet by ity of tablet 00:00: mouth [place] 00 every 6 Medical (six) Branch hours as needed (Pain). Take with food or milk. 2022-0 Yes [id number] 1{tbl} Take 1 Univers vitamin 5-07 tablet by ity of w/FA tablet 00:00: mouth in [place] 00 the Medical morning. Branch docusate 2022-0 Yes [id number] 200mg Take 2 U nivers 100 mg 5-07 capsules ity of capsule 00:00: by mouth [place] 00 once daily Medical as needed Branch for Constipati on. ferrous 2022-0 Yes [id number] 325mg Take 1 Un maria [place] sulfate 325 5-07 tablet by ity of mg (65 mg 00:00: [place] iron[place] 00 the Medical tablet morning Branch and 1 tablet in the evening. ibuprofen 2022-0 Yes [id number] 600mg Take 1 Univers 600 mg 5-07 tablet by ity of tablet 00:00: mouth [place] 00 every 6 Medical (six) Branch hours as needed (Pain). Take with food or milk. 2022-0 Yes [id number] 1{tbl} Take 1 Univers vitamin 5-07 tablet by ity of w/FA tablet 00:00: mouth in [place] 00 the Medical morning. Branch docusate 2022-0 Yes [id number] 200mg Take 2 U nivers 100 mg 5-07 capsules ity of capsule 00:00: by mouth [place] 00 once daily Medical as needed Branch for Constipati on. ferrous 2022-0 Yes [id number] 325mg Take 1 Un maria [place] sulfate 325 5-07 tablet by ity of mg (65 mg 00:00: [place] iron[place] 00 the Medical tablet morning Branch and 1 tablet in the evening. ibuprofen 3-0 Yes [id number] 600mg Take 1 Univers 600 mg 5-07 tablet by ity of tablet 00:00: mouth [place] 00 every 6 Medical (six) Branch hours as needed (Pain). Take with food or milk. 2022-0 Yes [id number] 1{tbl} Take 1 Univers vitamin 5-07 tablet by ity of w/FA tablet 00:00: mouth in [place] 00 the Medical morning. Branch docusate 2022-0 Yes [id number] 200mg Take 2 U nivers 100 mg 5-07 capsules ity of capsule 00:00: by mouth [place] 00 once daily Medical as needed Branch for Constipati on. ferrous 2022-0 Yes [id number] 325mg Take 1 Un maria [place] sulfate 325 5-07 tablet by ity of mg (65 mg 00:00: [place] iron[place] 00 the Medical tablet morning Branch and 1 tablet in the evening. ibuprofen 2022-0 Yes [id number] 600mg Take 1 Univers 600 mg 5-07 tablet by ity of tablet 00:00: mouth [place] 00 every 6 Medical (six) Branch hours as needed (Pain). Take with food or milk. 2022-0 Yes [id number] 1{tbl} Take 1 Univers vitamin 5-07 tablet by ity of w/FA tablet 00:00: mouth in [place] 00 the Medical morning. Branch docusate 2022-0 Yes [id number] 200mg Take 2 U nivers 100 mg 5-07 capsules ity of capsule 00:00: by mouth [place] 00 once daily Medical as needed Branch for Constipati on. ferrous 2022-0 Yes [id number] 325mg Take 1 Un maria [place] sulfate 325 5-07 tablet by ity of mg (65 mg 00:00: [place] iron[place] 00 the Medical tablet morning Branch and 1 tablet in the evening. ibuprofen 2022-0 Yes [id number] 600mg Take 1 Univers 600 mg 5-07 tablet by ity of tablet 00:00: mouth [place] 00 every 6 Medical (six) Branch hours as needed (Pain). Take with food or milk. 2022-0 Yes [id number] 1{tbl} Take 1 Univers vitamin 5-07 tablet by ity of w/FA tablet 00:00: mouth in [place] 00 the Medical morning. Branch docusate 2022-0 Yes [id number] 200mg Take 2 U nivers 100 mg 5-07 capsules ity of capsule 00:00: by mouth [place] 00 once daily Medical as needed Branch for Constipati on. ferrous 3-0 Yes [id number] 325mg Take 1 Un maria [place] sulfate 325 5-07 tablet by ity of mg (65 mg 00:00: [place] iron[place] 00 the Medical tablet morning Branch and 1 tablet in the evening. ibuprofen 3-0 Yes [id number] 600mg Take 1 Univers 600 mg 5-07 tablet by ity of tablet 00:00: mouth [place] 00 every 6 Medical (six) Branch hours as needed (Pain). Take with food or milk. 2022-0 Yes [id number] 1{tbl} Take 1 Univers vitamin 5-07 tablet by ity of w/FA tablet 00:00: mouth in [place] 00 the Medical morning. Branch docusate 2022-0 Yes [id number] 200mg Take 2 U nivers 100 mg 5-07 capsules ity of capsule 00:00: by mouth [place] 00 once daily Medical as needed Branch for Constipati on. ferrous 2022-0 Yes [id number] 325mg Take 1 Un maria [place] sulfate 325 5-07 tablet by ity of mg (65 mg 00:00: mouth [place] iron[place] 00 the Medical tablet morning Branch and 1 tablet in the evening. ibuprofen 2022-0 Yes [id number] 600mg Take 1 Univers 600 mg 5-07 tablet by ity of tablet 00:00: mouth [place] 00 every 6 Medical (six) Branch hours as needed (Pain). Take with food or milk. 2022-0 Yes [id number] 1{tbl} Take 1 Univers vitamin 5-07 tablet by ity of w/FA tablet 00:00: mouth in [place] 00 the Medical morning. Branch docusate 2022-0 Yes [id number] 200mg Take 2 U nivers 100 mg 5-07 capsules ity of capsule 00:00: by mouth [place] 00 once daily Medical as needed Branch for Constipati on. ferrous 2022-0 Yes [id number] 325mg Take 1 Un maria [place] sulfate 325 5-07 tablet by ity of mg (65 mg 00:00: mouth [place] iron[place] 00 the Medical tablet morning Branch and 1 tablet in the evening. ibuprofen 2022-0 Yes [id number] 600mg Take 1 Univers 600 mg 5-07 tablet by ity of tablet 00:00: mouth [place] 00 every 6 Medical (six) Branch hours as needed (Pain). Take with food or milk. 2022-0 Yes [id number] 1{tbl} Take 1 Univers vitamin 5-07 tablet by ity of w/FA tablet 00:00: mouth in [place] 00 the Medical morning. Branch docusate 2022-0 Yes [id number] 200mg Take 2 U nivers 100 mg 5-07 capsules ity of capsule 00:00: by mouth [place] 00 once daily Medical as needed Branch for Constipati on. ferrous 2023-0 Yes [id number] 325mg Take 1 Un maria [place] sulfate 325 5-07 tablet by ity of mg (65 mg 00:00: mouth [place] iron[place] 00 the Medical tablet morning Branch and 1 tablet in the evening. ibuprofen 2022-0 Yes [id number] 600mg Take 1 Univers 600 mg 5-07 tablet by ity of tablet 00:00: mouth [place] 00 every 6 Medical (six) Branch hours as needed (Pain). Take with food or milk. 2022-0 Yes [id number] 1{tbl} Take 1 Univers vitamin 5-07 tablet by ity of w/FA tablet 00:00: mouth in [place] 00 the Medical morning. Branch docusate 2022-0 Yes [id number] 200mg Take 2 U nivers 100 mg 5-07 capsules ity of capsule 00:00: by mouth [place] 00 once daily Medical as needed Branch for Constipati on. ferrous 2022-0 Yes [id number] 325mg Take 1 Un maria [place] sulfate 325 5-07 tablet by ity of mg (65 mg 00:00: mouth [place] iron[place] 00 the Medical tablet morning Branch and 1 tablet in the evening. ibuprofen 2022-0 Yes [id number] 600mg Take 1 Univers 600 mg 5-07 tablet by ity of tablet 00:00: mouth [place] 00 every 6 Medical (six) Branch hours as needed (Pain). Take with food or milk. 2022-0 Yes [id number] 1{tbl} Take 1 Univers vitamin 5-07 tablet by ity of w/FA tablet 00:00: mouth in [place] 00 the Medical morning. Branch docusate 2022-0 Yes [id number] 200mg Take 2 U nivers 100 mg 5-07 capsules ity of capsule 00:00: by mouth [place] 00 once daily Medical as needed Branch for Constipati on. ferrous 3-0 Yes [id number] 325mg Take 1 Un maria [place] sulfate 325 5-07 tablet by ity of mg (65 mg 00:00: mouth [place] iron[place] 00 the Medical tablet morning Branch and 1 tablet in the evening. ibuprofen 3-0 Yes [id number] 600mg Take 1 Univers 600 mg 5-07 tablet by ity of tablet 00:00: mouth [place] 00 every 6 Medical (six) Branch hours as needed (Pain). Take with food or milk. rho(D) Yes 300ug 300 mcg, Univer s immune 02-28 Intramuscu ity of globulin 21:59: lar, ONCE, [place] (RHOGAM) 35 For 1 Medical syringe 300 dose, Branch mcg Conditiona l, Routine ibuprofen Yes 600mg 600 mg, Univ ers (IBU) 02-28 Oral, ity of tablet 600 21:59: Q6HPRN, [place] mg 30 Starting Medical on [facility] Branch 02/28/23 at 1658, Until Discontinu ed, Routine, Pain (scale 4-6) acetaminoph Yes 650mg 650 mg, Un maria eug[place] en 02-28 Oral, ity of (TYLENOL) 21:59: Q6HPRN, [place] tablet 650 30 Starting Medic al mg on [facility] Branch 02/28/23 at 1658, Until Discontinu ed, Routine, Pain (scale 1-3) diphenhydrA Yes 25mg 25 mg, Univ ers MINE 02-28 Oral, ity of (BENADRYL) 21:59: Q6HPRN, [place] tablet 25 30 Starting Medica l mg on [facility] Branch 02/28/23 at 1658, Until Discontinu ed, Routine, Sleep, Itching ondansetron Yes 4mg 4 mg, Slow Univers (ZOFRAN 02-28 IV Push, ity of (PF)) 21:59: Q8HPRN, [place] injection 4 30 Starting Medi nataliia mg on [facility] Branch 02/28/23 at 1658, Until Discontinu ed, Routine, Nausea and Vomiting (N/V) simethicone Yes 160mg 160 mg, Un maria eug[place] (GAS RELIEF 02-28 Oral, ity of (SIMETHICON 21:59: PC+HSPRN, [place] E)) 30 Starting Medical chewable on Sat Branch tablet 160 02/28/23 at mg 1658, Until Discontinu ed, Routine, Gas docusate 0 Yes 200mg 200 mg, Unive rs (COLACE) 02-28 Oral, ity of capsule 200 21:59: QDAILYPRN, [place] mg 30 Starting Medical on Sat Branch 02/28/23 at 1659, Until Discontinu ed, Routine, Constipati on magnesium Yes 30mL 30 mL, Univer s hydroxide 02-28 Oral, ity of (MILK OF 21:59: QDAILYPRN, [place] MAGNESIA) 30 Starting Medica l 400 mg/5 mL on Sat Branch suspension 02/28/23 at 30 mL 1659, Until Discontinu ed, Routine, Constipati on benzocaine- Yes Topical, Un maria e[place] menthol 02-28 PRN, ity of (DERMOPLAST 21:59: Starting [place] ) 20-0.5 % 30 on Sat Medical topical 02/28/23 at Branch spray 1659, Until Discontinu ed, Routine, Perineum discomfort ondansetron 2022- No 4mg 4 mg, Slow Univers (ZOFRAN 02-28 IV Push, ity of (PF)) 19:45: 18:50 ONCE, On [place] injection 4 00 :00 02/28/23 Me dical mg at 1500, Branch For 1 dose
Do ses of ondansetro n 16 mg and above need to be administer ed via IV piggyback. For Dose >=24mg ECG monitoring is advisable.
proMETHazin 2022- No 25mg 25 mg, IV Univers e 02-28 Piggyback, ity of (PHENERGAN) 07:06: 21:59 at 200 [place] 25 mg in NS 00 :33 mL/hr Medical 50 mL IV Administer Branc h piggyback over 15 (CNR) Minutes, Q4HPRN, Starting on 02/28/23 at 0206, Until 02/28/23 at 1659, Routine, Nausea and Vomiting (N/V) ropivacaine 2022- No Epidural, Univers 0.2 % 02-28 ONCE INTRA ity of (NAROPIN 06:38: 19:56 PROCEDURE, [place] (PF)) 00 :18 Starting Medical epidural on Sat Branch infusion 02/28/23 at 0138, Until 02/28/23 at 1456, Routine, Intra-op ropivacaine 2022- No Epidural, Univers 0.2 % 02-28-06 ONCE INTRA ity of (NAROPIN 06:38: 19:56 PROCEDURE, [place] (PF)) 00 :18 Starting Medical epidural on Sat Branch infusion 02/28/23 at 0138, Until 02/28/23 at 1456, Routine, Intra-op lidocaine-e 2022-2022- No Intravenou Univers pinephrine 02-28-06 s, ONCE ity o f (XYLOCAINE 06:37: 19:56 INTRA [place] W/EPINEPHRI 00 :18 PROCEDURE, Me dical NE) 2 Starting Branch %-1:200,000 on Sat injection 02/28/23 at 0137, Until 02/28/23 at 1456, Routine, Intra-op lidocaine-e 2022- No Intravenou Univers pinephrine 02-28- s, ONCE ity o f (XYLOCAINE 06:37: 19:56 INTRA [place] W/EPINEPHRI 00 :18 PROCEDURE, Me dical NE) 2 Starting Branch %-1:200,000 on Sat injection 02/28/23 at 0137, Until 02/28/23 at 1456, Routine, Intra-op ondansetron 2022- No 4mg 4 mg, Slow Univers (ZOFRAN 02-28 IV Push, ity of (PF)) 06:00: 04:55 ONCE, 1 [place] injection 4 00 :00 dose, On Medi nataliia mg 02/28/23 Branch at 0100, Routine oxytocin 2022- No 2mU/min at 2-40 Un maria eugenia (PITOCIN) 02-28 05-06 mL/hr, IV ity of 30 units in 04:47: 21:59 Infusion, [place] NS 500 mL 46 :33 TITRATE, Medica l IV infusion Starting Bran ch on Thu02/27/23 at 2347, Until 02/28/23 at 1659, AARON lactated 2022- No 500mL at 999 Unive rs ringers IV 02-28 05-06 mL/hr, 500 it y of infusion 04:45: 06:34 mL, IV [place] 500 mL 00 :35 Infusion, Medical ONCE, 1 Branch dose, On Thu02/27/23 at 2345, Routine lactated 2022- No 500mL at 999 Unive rs ringers IV 02-28 05-06 mL/hr, 500 it y of infusion 03:48: 07:35 mL, IV [place] 500 mL 03 :42 Infusion, Medical PRN - SEE Branch INSTRUCTIO NS, 1 dose, Starting on Thu02/27/23 at 2248, Until 02/28/23 at 0235, Routine sodium 2022- No 30mL 30 mL, Univers citrate-cit 02-28- Oral, ity of marcelo acid 03:48: 06:04 PRE-PROCED [place] (BICITRA) 03 :00 URE ONCE, Medic al 500-334 1 dose, Branch mg/5 mL Starting solution 30 on Thu02/27/23 at 2248, Until Discontinu ed, Routine, Surgery/Pr ocedure morpHINE (4 2022- No 4mg 4 mg, Slow Univers mg/mL) 02-27-05 IV Push, ity of injection 4 21:30: 21:18 ONCE, 1 [place] mg 00 :00 dose, On Medical Thu02/27/23 Branch at 1630, Routine proMETHazin 2022- No 25mg 25 mg, IV Univers e 02-27-05 Piggyback, ity of (PHENERGAN) 21:15: 21:33 at 200 [place] 25 mg in NS 00 :00 mL/hr Medical 50 mL IV Administer Branc h piggyback over 15 (CNR) Minutes, ONCE, 1 dose, On Thu02/27/23 at 1615, Routine ondansetron 2022- No 4mg 4 mg, Slow Univers (ZOFRAN 02-27-05 IV Push, ity of (PF)) 18:00: 17:12 ONCE, On [place] injection 4 00 :00 Thu02/27/23 Me dical mg at 1300, Branch For 1 dose
Do ses of ondansetro n 16 mg and above need to be administer ed via IV piggyback. For Dose >=24mg ECG monitoring is advisable.
lactated 2022- No 500mL at 999 Unive rs ringers IV 05 05-06 mL/hr, 500 it y of infusion 12:52: 21:59 mL, IV [place] 500 mL 28 :33 Infusion, Medical PRN - SEE Branch INSTRUCTIO NS, Starting on Thu02/27/23 at 0752, Until 02/28/23 at 1659, Routine [id number] IV 2022-2022- No 1000mL at 1-125 U nivers infusion 5-05 05-06 mL/hr, IV ity o f 1,000 mL 12:52: 21:59 Infusion, [place] 28 :33 TITRATE, Medical Starting Branch on Thu02/27/23 at 0752, Until 02/28/23 at 1659, Routine No known 0 No No known Unive rs medications - medication it y of 08:30: [address] No known 0 No No known Unive rs medications - medication it y of 08:30: [address] No known 2021-10 No No known Unive rs medications 2-29 medication it y of 10:54: [address] No known 2021-10 No No known Unive rs medications 2-29 medication it y of 10:54: [address] No known 2021-10 No No known Unive rs medications 2-29 medication it y of 10:54: [address] No known 2021- No No known Unive rs medications 2-29 medication it y of 10:54: [address] No known 2021- No No known Unive rs medications 2-02 medication it y of 15:57: [address] No known 2021- No No known Unive rs medications 2-02 medication it y of 15:57: [address] No known No No known Unive rs medications 7-05 medication it y of 16:30: [address] No known 0 No No known Unive rs medications 7-05 medication it y of 16:30: [address] No known No [facility] known No [facility] medications [facility] No known No Univers medications [facility] [place] [facility] No known No Univers medications [facility] [place] [facility] Immunizations Ordered Filled Immunization Date Status Comments Sour e Immunization Name Name HPV9 2023-04-15 Completed University of 00:00:00 [facility] HPV9 2023-04-15 Completed University of 00:00:00 [place] [facility] HPV9 2023-04-15 Completed University of 00:00:00 [place] [facility] HPV9 2023-04-15 Completed University of 00:00:00 [place] [facility] HPV9 2023-04-15 Completed University of 00:00:00 [place] [facility] HPV9 2023-04-15 Completed University of 00:00:00 [place] [facility] HPV9 2023-04-15 Completed University of 00:00:00 [place] [facility] HPV9 2023-04-15 Completed University of 00:00:00 [place] [facility] HPV9 2023-04-15 Completed University of 00:00:00 [facility] Branch TDAP 2022-12-25 Completed University of 00:00:00 [facility] Branch TDAP 2022-12-25 Completed University of 00:00:00 [facility] TDAP 2022-12-25 Completed University of 00:00:00 [facility] TDAP 2022-12-25 Completed University of 00:00:00 [facility] TDAP 2022-12-25 Completed University of 00:00:00 [facility] TDAP 2022-12-25 Completed University of 00:00:00 [facility] TDAP 2022-12-25 Completed University of 00:00:00 [facility] TDAP 2022-12-25 Completed University of 00:00:00 [facility] TDAP 2022-12-25 Completed University of 00:00:00 [facility] TDAP 2022-12-25 Completed University of 00:00:00 [facility] TDAP 2022-12-25 Completed University of 00:00:00 [facility] TDAP 2022-12-25 Completed University of 00:00:00 [facility] TDAP 2022-12-25 Completed University of 00:00:00 [facility] TDAP 2022-12-25 Completed University of 00:00:00 [facility] TDAP 2022-12-25 Completed University of 00:00:00 [facility] TDAP 2022-12-25 Completed University of 00:00:00 [facility] TDAP 2022-12-25 Completed University of 00:00:00 [facility] TDAP 2022-12-25 Completed University of 00:00:00 [facility] TDAP 2022-12-25 Completed [facility] 00:00:00 [facility] TDAP 2022-12-25 Completed [facility] 00:00:00 [facility] TDAP 2022-12-25 Completed [facility] 00:00:00 [facility] Hep B, Adol or Pedi 2000 Completed Unive rsity of Dosage 00:00:00 [facility] Hep B, Adol or Pedi 2000 Completed Unive rsity of Dosage 00:00:00 [facility] Hep B, Adol or Pedi 2000 Completed Unive rsity of Dosage 00:00:00 [facility] Hep B, Adol or Pedi 2000 Completed Unive rsity of Dosage 00:00:00 [facility] Hep B, Adol or Pedi 2000 Completed Unive rsity of Dosage 00:00:00 [facility] Hep B, Adol or Pedi 2000 Completed Unive rsity of Dosage 00:00:00 [facility] Hep B, Adol or Pedi 2000 Completed Unive rsity of Dosage 00:00:00 [facility] Hep B, Adol or Pedi 2000 Completed Unive rsity of Dosage 00:00:00 [facility] Hep B, Adol or Pedi 2000 Completed Unive rsity of Dosage 00:00:00 [facility] Hep B, Adol or Pedi 2000 Completed Unive rsity of Dosage 00:00:00 [facility] Hep B, Adol or Pedi 2000 Completed Unive rsity of Dosage 00:00:00 [facility] Hep B, Adol or Pedi 2000 Completed Unive rsity of Dosage 00:00:00 [facility] Hep B, Adol or Pedi 2000 Completed Unive rsity of Dosage 00:00:00 [facility] Hep B, Adol or Pedi 2000 Completed Unive rsity of Dosage 00:00:00 [facility] Hep B, Adol or Pedi 2000 Completed Unive rsity of Dosage 00:00:00 [facility] Hep B, Adol or Pedi 2000 Completed Unive rsity of Dosage 00:00:00 [facility] Hep B, Adol or Pedi 2000 Completed Unive rsity of Dosage 00:00:00 [facility] Hep B, Adol or Pedi 2000 Completed Unive rsity of Dosage 00:00:00 [facility] Hep B, Adol or Pedi 2000 Completed Unive rsity of Dosage 00:00:00 [facility] Hep B, Adol or Pedi 2000 Completed Unive rsity of Dosage 00:00:00 [facility] Hep B, Adol or Pedi 2000 Completed Unive rsity of Dosage 00:00:00 [facility] Hep B, Adol or Pedi 2000 Completed Unive rsity of Dosage 00:00:00 [facility] Hep B, Adol or Pedi 2000 Completed Unive rsity of Dosage 00:00:00 [facility] Hep B, Adol or Pedi 2000 Completed Unive rsity of Dosage 00:00:00 [facility] Hep B, Adol or Pedi 2000 Completed Unive rsity of Dosage 00:00:00 [facility] Hep B, Adol or Pedi 2000 Completed Unive rsity of Dosage 00:00:00 [facility] Hep B, Adol or Pedi 2000 Completed Unive rsity of Dosage 00:00:00 [facility] Hep B, Adol or Pedi 2000 Completed Unive rsity of Dosage 00:00:00 [facility] Vital Signs Vital Name Observation Time Observation Value Comments Source Systolic blood 2023-06-09 10:31:00 112 mm[Hg] Univer sity of pressure [facility] Diastolic blood 2023-06-09 10:31:00 63 mm[Hg] Unive rsity of pressure [facility] Heart rate 2023-06-09 10:31:00 60 /min [facility] Res[facility] rate 2023-06-09 10:31:00 13 /min [facility] O[facility] saturation in 2023-06-09 10:31:00 97 /min [facility] Arterial blood by [facility] Pulse oximetry Branch Body temperature 2023-06-09 07:53:00 36.17 [facility] Body height 2023-06-09 07:53:00 165.1 cm Universi ty of [facility] Body weight 2023-06-09 07:53:00 122.471 kg Universi ty of [facility] BMI 2023-06-09 07:53:00 44.93 kg/m2 Universi ty of [facility] Systolic blood 2023-04-15 14:12:00 98 mm[Hg] Univer sity of pressure [facility] Diastolic blood 2023-04-15 14:12:00 59 mm[Hg] Unive rsity of pressure [facility] Heart rate 2023-04-15 14:12:00 66 /min Universi ty of [facility] Body temperature 2023-04-15 14:12:00 36.78 Con[facility] Univ ersity of [facility] Respiratory rate 2023-04-15 14:12:00 18 /min Univ ersity of [facility] Body height 2023-04-15 14:12:00 165.1 cm Universi ty of [facility] Body weight 2023-04-15 14:12:00 102.513 kg Universi ty of [facility] BMI 2023-04-15 14:12:00 37.61 kg/m2 Universi ty of [facility] Systolic blood 2023-03-24 13:30:00 105 mm[Hg] Univer sity of pressure [facility] Diastolic blood 2023-03-24 13:30:00 57 mm[Hg] Unive rsity of pressure [facility] Heart rate 2023-03-24 13:30:00 71 /min Universi ty of [facility] Body temperature 2023-03-24 13:30:00 35.72 Concha Univ ersity of [facility] Respiratory rate 2023-03-24 13:30:00 18 /min Univ ersity of [facility] Body height 2023-03-24 13:30:00 165.1 cm Universi ty of [facility] Body weight 2023-03-24 13:30:00 103.148 kg Universi ty of [facility] BMI 2023-03-24 13:30:00 37.84 kg/m2 Universi ty of [facility] Systolic blood 2023-03-01 17:16:00 133 mm[Hg] Univer sity of pressure [facility] Diastolic blood 2023-03-01 17:16:00 89 mm[Hg] Unive rsity of pressure [facility] Heart rate 2023-03-01 17:16:00 94 /min Universi ty of [facility] Body temperature 2023-03-01 17:16:00 36.83 [facility] Univ ersity of [facility] Respiratory rate 2023-03-01 17:16:00 18 /min Univ ersity of [facility] Oxygen saturation in 2023-03-01 17:16:00 98 /min University Arterial blood by [facility] Pulse oximetry Branch Body height 2023-02-27 12:54:00 165.1 cm Universi ty of [place] [facility] [place] Body weight 2023-02-27 12:54:00 110.224 kg Universi ty of [facility] [place] BMI 2023-02-27 12:54:00 40.44 kg/m2 Universi ty of [facility] Systolic blood 2023-02-19 20:28:00 128 mm[Hg] Univer sity of pressure [facility] Diastolic blood 2023-02-19 20:28:00 69 mm[Hg] Unive rsity of pressure [facility] Heart rate 2023-02-19 20:28:00 97 /min Universi ty of [facility] Body temperature 2023-02-19 20:28:00 36.5 Concha Univ ersity of [facility] Respiratory rate 2023-02-19 20:28:00 18 /min Univ ersity of [facility] Body height 2023-02-19 20:28:00 165.1 cm Universi ty of [facility] [place] Body weight 2023-02-19 20:28:00 110.224 kg Universi ty of [facility] BMI 2023-02-19 20:28:00 40.44 kg/m2 Universi ty of [facility] Systolic blood 2023-02-12 20:13:00 113 mm[Hg] Univer sity of pressure [facility] Diastolic blood 2023-02-12 20:13:00 65 mm[Hg] Unive rsity of pressure [facility] [place] Heart rate 2023-02-12 20:13:00 83 /min Universi ty of [facility] Body temperature 2023-02-12 20:13:00 36.22 Concha Univ ersity of [facility] Respiratory rate 2023-02-12 20:13:00 18 /min Univ ersity of [facility] Body height 2023-02-12 20:13:00 165.1 cm Universi ty of [facility] Body weight 2023-02-12 20:13:00 111.177 kg Universi ty of [facility] BMI 2023-02-12 20:13:00 40.79 kg/m2 Universi ty of [facility] Systolic blood 2023-02-05 20:16:00 115 mm[Hg] Univer sity of pressure [facility] Diastolic blood 2023-02-05 20:16:00 67 mm[Hg] Unive rsity of pressure [facility] Heart rate 2023-02-05 20:16:00 92 /min Universi ty of [facility] Body temperature 2023-02-05 20:16:00 36.78 Concha Univ ersity of [facility] Respiratory rate 2023-02-05 20:16:00 18 /min Univ ersity of [facility] Body height 2023-02-05 20:16:00 165.1 cm Universi ty of [facility] Body weight 2023-02-05 20:16:00 109.374 kg Universi ty of [facility] BMI 2023-02-05 20:16:00 40.13 kg/m2 Universi ty of [facility] Systolic blood 2023-01-22 19:47:00 112 mm[Hg] Univer sity of pressure [facility] Diastolic blood 2023-01-22 19:47:00 65 mm[Hg] Unive rsity of pressure [facility] Heart rate 2023-01-22 19:47:00 86 /min Universi ty of [facility] Body temperature 2023-01-22 19:47:00 36.5 Concha Univ ersity of [facility] Respiratory rate 2023-01-22 19:47:00 18 /min Univ ersity of [facility] Body height 2023-01-22 19:47:00 165.1 cm Universi ty of [facility] Body weight 2023-01-22 19:47:00 108.455 kg Universi ty of [facility] BMI 2023-01-22 19:47:00 39.79 kg/m2 Universi ty of [facility] Systolic blood 2023-01-08 20:16:00 103 mm[Hg] Univer sity of pressure [facility] Diastolic blood 2023-01-08 20:16:00 57 mm[Hg] Unive rsity of pressure [facility] Heart rate 2023-01-08 20:16:00 93 /min Universi ty of [facility] Body temperature 2023-01-08 20:16:00 36.67 Concha Univ ersity of [facility] Respiratory rate 2023-01-08 20:16:00 18 /min Univ ersity of [facility] Body height 2023-01-08 20:16:00 165.1 cm Universi ty of [facility] Body weight 2023-01-08 20:16:00 106.505 kg Universi ty of [facility] BMI 2023-01-08 20:16:00 39.07 kg/m2 Universi ty of [facility] Systolic blood 2022-12-25 14:46:00 115 mm[Hg] Univer sity of pressure [facility] Diastolic blood 2022-12-25 14:46:00 65 mm[Hg] Unive rsity of pressure [facility] Heart rate 2022-12-25 14:46:00 90 /min Universi ty of [facility] Body temperature 2022-12-25 14:46:00 36.56 Con[facility] Univ ersity of [facility] Respiratory rate 2022-12-25 14:46:00 18 /min Univ ersity of [facility] Body height 2022-12-25 14:46:00 165.1 cm Universi ty of [facility] Body weight 2022-12-25 14:46:00 104.736 kg Universi ty of [facility] BMI 2022-12-25 14:46:00 38.42 kg/m2 Universi ty of [facility] Systolic blood 2022-12-11 14:15:00 113 mm[Hg] Univer sity of pressure [facility] Diastolic blood 2022-12-11 14:15:00 64 mm[Hg] Unive rsity of pressure [facility] Heart rate 2022-12-11 14:15:00 87 /min Universi ty of [facility] Body temperature 2022-12-11 14:15:00 35.33 Concha Univ ersity of [facility] Respiratory rate 2022-12-11 14:15:00 18 /min Univ ersity of [facility] Body height 2022-12-11 14:15:00 165.1 cm Universi ty of [facility] Body weight 2022-12-11 14:15:00 104.101 kg Universi ty of [facility] BMI 2022-12-11 14:15:00 38.19 kg/m2 Universi ty of [facility] Systolic blood 2022-11-20 14:19:00 108 mm[Hg] Univer sity of pressure [facility] Diastolic blood 2022-11-20 14:19:00 62 mm[Hg] Unive rsity of pressure [facility] Heart rate 2022-11-20 14:19:00 87 /min Universi ty of [facility] Body temperature 2022-11-20 14:19:00 36.39 Concha Univ ersity of [facility] Respiratory rate 2022-11-20 14:19:00 18 /min Univ ersity of [facility] Body height 2022-11-20 14:19:00 165.1 cm Universi ty of [facility] Body weight 2022-11-20 14:19:00 102.059 kg Universi ty of [facility] BMI 2022-11-20 14:19:00 37.44 kg/m2 Universi ty of [facility] Systolic blood 2022-10-23 16:40:00 110 mm[Hg] Univer sity of pressure [facility] Diastolic blood 2022-10-23 16:40:00 74 mm[Hg] Unive rsity of pressure [facility] Heart rate 2022-10-23 16:40:00 84 /min Universi ty of [facility] Body temperature 2022-10-23 16:40:00 36.44 Concha Univ ersity of [facility] Respiratory rate 2022-10-23 16:40:00 16 /min Univ ersity of [facility] Body height 2022-10-23 16:40:00 165.1 cm Universi ty of [facility] Body weight 2022-10-23 16:40:00 99.655 kg Universi ty of [facility] BMI 2022-10-23 16:40:00 36.56 kg/m2 Universi ty of [facility] Systolic blood 2022-09-26 21:35:00 106 mm[Hg] Univer sity of pressure [facility] Diastolic blood 2022-09-26 21:35:00 64 mm[Hg] Unive rsity of pressure [facility] Heart rate 2022-09-26 21:35:00 75 /min Universi ty of [facility] Body temperature 2022-09-26 21:35:00 36.67 Concha Univ ersity of [facility] Respiratory rate 2022-09-26 21:35:00 17 /min Univ ersity of [facility] Body height 2022-09-26 21:35:00 165.1 cm Universi ty of [facility] Body weight 2022-09-26 21:35:00 96.117 kg Universi ty of [facility] BMI 2022-09-26 21:35:00 35.26 kg/m2 Universi ty of [facility] Systolic blood 2021-04-29 21:30:00 108 mm[Hg] Univer sity of pressure [facility] Diastolic blood 2021-04-29 21:30:00 63 mm[Hg] Unive rsity of pressure [facility] Heart rate 2021-04-29 21:30:00 76 /min Universi ty of [facility] Body weight 2021-04-29 21:30:00 83.008 kg Universi ty of [facility] Systolic blood 2021-03-18 15:35:00 100 mm[Hg] Univer sity of pressure [facility] Diastolic blood 2021-03-18 15:35:00 67 mm[Hg] Unive rsity of pressure [facility] Heart rate 2021-03-18 15:35:00 68 /min Universi ty of [facility] Body height 2021-03-18 15:35:00 165.1 cm Universi ty of [facility] Body weight 2021-03-18 15:35:00 83.008 kg Universi ty [facility] BMI 2021-03-18 15:35:00 30.45 kg/m2 [facility]i ty [facility] Procedures Procedure Date / Time Performing Clinician Source Performed CT ABDOMEN PELVIS W 2023-06-09 09:26:32 Davi Mazariegos [facility] POCT TEST 2023-06-09 08:24:00 Davi Mazariegos [facility] URINALYSIS 2023-06-09 08:17:00 Davi Mazariegos [facility] CBC WITH DIFF 2023-06-09 08:08:00 Davi Mazariegos [facility] NOTICE OF PRIVACY 2023-06-09 07:51:56 Doctor Unassigned, No [facility] PRACTICES Name [facility] CONSENT/REFUSAL FOR 2023-06-09 07:51:39 Doctor Unassigned, No [facility] DIAGNOSIS AND TREATMENT Name [facility] GARDASIL 9 (HPV 9V) 2023-04-15 14:53:37 Kendra Henao [facility] VACCINE [facility] CBC WITH DIFF 2023-03-01 09:05:00 Becky Hurley [facility] VENOUS CORD GAS 2023-02-28 18:58:00 Juan Gallardo [facility] SGOT (ASPARTATE AMINO 2023-02-28 16:24:00 Ly, [facility] TRANSFER) [facility] CREATININE 2023-02-28 16:24:00 Ly, [facility] ALANINE AMINO 2023-02-28 16:24:00 Ly, [facility] TRANSFERASE(SGPT [facility] [place] LACTATE DEHYDROGENASE 2023-02-28 16:24:00 Ly, [facility] URIC ACID 2023-02-28 16:24:00 Ly, [facility] CBC WITH DIFF 2023-02-28 16:24:00 Ly, [facility] URINALYSIS 2023-02-28 16:24:00 Ly, [facility] PROTEIN CREAT RATIO 2023-02-28 16:24:00 Ly, [facility] URINE RANDOM [facility] CENTRAL NEURAXIAL BLOCK 2023-02-28 06:10:00 Roman Erazo [facility] CBC WITH DIFF 2023-02-27 14:52:00 Juan Gallardo [facility] HEPATITIS B SURFACE 2023-02-27 14:52:00 Juan Gallardo [facility] ANTIGEN [facility] HB ABO GROUPING 2023-02-27 14:52:00 Juan Gallardo [facility] RHO (D) IMMUNE GLOBULIN 2023-02-27 14:52:00 Becky Hurley [facility] HIV 1/2 AG-AB WITH 2023-02-27 14:52:00 Juan Gallardo [facility] REFLEX [facility] SYPHILIS IGG/IGM 2023-02-27 14:52:00 Juan Gallardo [facility] POCT URINALYSIS 2023-02-19 20:33:00 Keke Ascencio [facility] POCT URINALYSIS 2023-02-12 20:15:00 Keke Ascencio [facility] POCT URINALYSIS 2023-02-05 20:17:00 Keke Ascencio [facility] POCT URINALYSIS 2023-01-22 19:48:00 Keke Ascencio [facility] POCT URINALYSIS 2023-01-08 20:20:00 Keke Ascencio [facility] POCT URINALYSIS 2023-01-08 20:17:00 Keke Ascencio [facility] POCT URINALYSIS 2022-12-25 17:34:00 Keke Ascencio [facility] TDAP VACCINE, >11 YRS, 2022-12-25 14:34:47 Keke Ascencio [facility] HIV 1/2 AG-AB WITH 2022-12-11 14:40:00 Keke Ascencio [facility] SYPHILIS IGG/IGM 2022-12-11 14:40:00 Keke Ascencio [facility] POCT URINALYSIS 2022-12-11 14:19:00 Keke Ascencio [facility] POCT URINALYSIS 2022-11-20 00:00:00 Keke Ascencio [facility] POCT URINALYSIS 2022-10-23 00:00:00 Keke Ascencio [facility] GLUCOSE 1 HOUR POST 2022-09-30 14:58:00 Keke Ascencio [facility] CBC WITH DIFF 2022-09-30 14:58:00 Keke Ascencio [facility] RUBELLA SCREEN IGG 2022-09-30 14:58:00 Keke Ascencio [facility] VZV ANTIBODY SCREEN 2022-09-30 14:58:00 Keke Ascencio [facility] HEPATITIS B SURFACE 2022-09-30 14:58:00 Keke Ascencio [facility] ANTIGEN [facility] HB ABO GROUPING 2022-09-30 14:58:00 Keke Ascencio [facility] GALV ONLY - SYPHILIS 2022-09-30 14:58:00 Keke Ascencio [facility] IGG/IGM [facility] URINE CULTURE 2022-09-26 22:52:00 Keke Ascencio [facility] ASSIGNMENT OF BENEFITS 2022-09-26 19:50:30 Doctor Unassigned, No [facility] POCT TEST 2022-09-26 00:00:00 Keke Ascencio [facility] POCT URINALYSIS W/O 2022-09-26 00:00:00 Keke Ascencio [facility] SPECIFIC GRAVITY [facility] XR CERVICAL SPINE 2 VW 2021-03-18 16:46:48 Victoriano Paez [facility] Encounters Start End Encounter Admission Attending Care Care Encounter Source Date/Time Date/Time Type Type Clinicians Facility Department ID 2023-06-11 2023-06-11 Outpatient Stanley MORRELL [facility] [id number] Univers 09:00:00 09:00:00 GUS corona [facility] 2023-06-09 2023-06-09 Emergency X [facility] ERT [id number] Univers 02:53:00 05:52:00 DAVI corona [facility] 2023-06-09 2023-06-09 Emergency [facility] [id number] Univers 02:53:00 05:52:00 Davi SOLANO 350.1.13.10 ity [place] [id number] [facility] [address] 2023-06-09 2023-06-09 Orders Doctor GEORGES [id number] Univers 00:00:00 00:00:00 Only Unassigned, JAMIA 350.1.13.10 ity of [place] [facility] 4.2.7.2.686 Doug as [id number] [facility] [address] 2023-06-09 2023-06-09 Telephone [facility] [id number] Univers 00:00:00 00:00:00 Gus CUIMAHDURI 350.1.13.10 i ty [place] [facility] [id number] Dc dical [address] 2023-04-15 2023-04-15 [facility] [id number] Univers 09:00:00 10:39:50 KENDRA latif [facility] 2023-04-15 2023-04-15 Office [facility] [id number] Univers 09:00:00 10:39:50 Visit Kendra Lawson [employer] INST[employer]ER 350.1.13.10 ity of [facility] 4.2.7.2.686 Doug as MATERNAL [id number] Med ical & CHILD [address] [place] [address] 2023-03-24 2023-03-24 Outpatient R AKINSIPE, [facility] [id number] Univers 08:00:00 08:43:29 KENDRA latif [facility] 2023-03-24 2023-03-24 Routine [facility] [id number] Univers 08:00:00 08:43:29 Kendra C [employer] INST[employer] 350.1.13.10 ity of Visit [facility] 4.2.7.2.686 Doug as MATERNAL [id number] Med ical & CHILD [address] [place] [address] 2023-02-27 2023-03-01 Inpatient P SARAH [facility] JOHNATHAN [id number] Univers 07:17:00 18:41:00 KRISTIE ity [facility] 2023-02-27 2023-03-01 Hospital GEORGES Smith 1.2.840.114 [id number] Univers 07:17:00 18:41:00 Encounter Kristie BLANDON 350.1.13.10 ity [facility] 4.2.7.2.686 [place] [id number] [facility] [address] 2023-02-28 2023-02-28 Anesthesia GEORGES Hernadez 1.2.840.114 [id number] Univers 20:02:47 20:02:47 Event Ronnie BLANDON 350.1.13.10 it y of [facility] 4.2.7.2.686 Doug as [id number] [facility] [address] 2023-02-28 2023-02-28 Anesthesia ErazoRoman 1.2.840.114 [id number] Univers 01:10:00 14:56:00 Event Pool Vallada[place] 350.1. 13.10 ity [facility] 4.2.7.2.686 Doug as [id number] [address] 2023-02-19 2023-02-19 [facility] [id number] Univers 15:30:00 15:55:24 [facility]23-02-19 2023-02-19 [facility] 1.2.840.114 [id number] Univers 15:30:00 15:55:24 Keke A [employer] INSTALL[employer] 350.1.13.10 ity of Visit REGIONAL 4.2.7.2.686 Doug as MATERNAL [id number] [facility] & CHILD [address] [place] [address] 2023-02-13 2023-02-13 Out[facility] [id number] Univers 14:45:00 14:45:00 KENDRA corona o f [facility] 2023-02-12 2023-02-12 Outpatient R JULIANO [facility] [id number] Univers 15:15:00 15:32:17 KENDRA ity o f [facility] 2023-02-12 2023-02-12 [facility] [id number] Univers 15:15:00 15:32:17 Kendra C [employer] INSTALLER 350.1.13.10 ity of Visit REGIONAL 4.2.7.2.686 Doug as MATERNAL [id number] [facility] & CHILD [address] [place] [address] 2023-02-05 2023-02-05 [facility] [id number] Univers 15:00:00 15:47:40 KEKE itvee [facility] 2023-02-05 2023-02-05 [facility] 1.2.840.114 [id number] Univers 15:00:00 15:47:40 Keke A [employer] INST[employer] 350.1.13.10 ity of Visit REGIONAL 4.2.7.2.686 Doug as MATERNAL [id number] [facility] & CHILD [address] [place] [address] 2023-01-22 2023-01-22 Routine Provider, Homero Patel [facility] 1 .2.840.114 [id number] Univers 15:15:00 15:15:00 MalouDahlia mejianda Perfecto ELECTRIC STOP INSTALLER 350.1.13. 10 ity of Visit REGIONAL 4.2.7.2.686 Doug as MATERNAL [phone] [facility] & CHILD [address] [place] [address] 2023-01-22 2023-01-22 Outpatient [facility] [id number] Univers 15:15:00 15:10:04 KEKE [facility] 2023-01-08 2023-01-08 Outpatient [facility] [id number] Univers 15:30:00 15:52:04 KEKE itvee [facility] 2023-01-08 2023-01-08 Routine Provider, Homero Patel [facility] 1 .2.840.114 [id number] Univers 15:30:00 15:52:04 Pickhardt, Keke A ELECTRIC STOP INSTALLER 350.1.13. 10 ity of Visit REGIONAL 4.2.7.2.686 Doug as MATERNAL [phone] [facility] & [address] 2022-12-25 2022-12-25 Outpatient Stanley ASCENCIO [facility] [id number] Univers 08:45:00 09:28:00 [facility] 2022-12-25 2022-12-25 [facility] 1 .2.840.114 [id number] Univers 08:45:00 09:28:00 Keke Ascencio ELECTRIC STOP INSTALLER 350.1.13. 10 ity of Visit REGIONAL 4.2.7.2.686 Doug as MATERNAL [phone] [address] 2022-12-11 2022-12-11 Outpatient Stanley ASCENCIO [facility] [id number] Univers 07:45:00 08:48:29 KEKE corona [facility] 2022-12-11 2022-12-11 [facility], [facility] 1 .2.840.114 [id number] Univers 07:45:00 08:48:29 Keke Ascencio ELECTRIC STOP INSTALLER 350.1.13. 10 ity of Visit REGIONAL 4.2.7.2.686 Doug as MATERNAL [phone] [address] 2022-11-24 2022-11-24 [facility], [facility] 1.2.840. 114 [id number] Univers 08:00:00 08:33:13 Visit Kendra Henao ELECTRIC STOP INSTALLER 350.1.13. 10 ity of REGIONAL 4.2.7.2.686 Doug as MATERNAL [id number] [address] 2022-11-24 2022-11-24 Outpatient Stanley HENAO [facility] [id number] Univers 08:00:00 08:00:00 KENDRA joyce f [facility] 2022-11-202022-11-20 Outpatient R SONU [facility] [id number] Univers 08:15:00 08:42:43 KEKE [facility] 2022-11-20 2022-11-20 Routine [facility] 1 .2.840.114 [id number] Univers 08:15:00 08:42:43 Keke Ascencio ELECTRIC STOP INSTALLER 350.1.13. 10 ity of Visit REGIONAL 4.2.7.2.686 Doug as MATERNAL [id number] [facility] ical & CHILD [address] [place] [address] 2022-10-28 2022-10-28 Case Sonu [facility] 1.2.840.114 [id number] Univers 00:00:00 00:00:00 Management Keke Grove ELECTRIC STOP INSTALLER 350.1.13.10 ity of REGIONAL 4.2.7.2.686 Doug as MATERNAL [phone] [facility] & CHILD [address] [place] [address] 2022-10-27 2022-10-27 Outpatient Rachael AHN [facility] [id number] Univers 13:00:00 13:48:22 SVETLANA [facility] 2022-10-27 2022-10-27 [facility] 1.2 .840.114 [id number] Univers 13:00:00 13:48:22 Visit Svetlana Ahn Stanley ELECTRIC STOP INSTALLER 350.1.13.10 ity of REGIONAL 4.2.7.2.686 Doug as MATERNAL [phone] [facility] ical & CHILD [address] [place] [address] 2022-10-23 2022-10-23 Routine Provider, Homero [facility] 1 .2.840.114 [id number] Univers 10:30:00 11:10:30 Keke Ascencio ELECTRIC STOP INSTALLER 350.1.13. 10 ity of Visit REGIONAL 4.2.7.2.686 Doug as MATERNAL [phone] [facility] & CHILD [address] [place] [address] 2022-10-23 2022-10-23 [facility] [id number] Univers 10:30:00 11:10:30 KEKE ity [facility] 2022-09-30 2022-09-30 Outpatient R JULIANO [facility] [id number] Univers 07:45:00 08:00:05 KENDRA ity o f [facility] 2022-09-30 2022-09-30 [facility], [facility] 1.2.840. 114 [id number] Univers 07:45:00 08:00:05 Visit Kendra Henao ELECTRIC STOP INSTALLER 350.1.13. 10 ity of REGIONAL 4.2.7.2.686 Doug as MATERNAL [id number] Med ical & CHILD [address] [place] [address] 2022-09-29 2022-09-29 Outpatient R [facility] [id number] Univers 08:30:00 08:30:00 ity of [facility] 2022-09-26 2022-09-26 Initial Provider, Homero [facility] 1 .2.840.114 [id number] Univers 14:45:00 16:48:37 Keke Ascencio ELECTRIC STOP INSTALLER 350.1.13. 10 ity of Visit REGIONAL 4.2.7.2.686 Doug as MATERNAL [id number] Med ical & CHILD [address] [place] [address] 2022-09-26 2022-09-26 Outpatient R SONU [facility] [id number] Univers 14:15:00 15:24:35 [facility] 2022-09-26 2022-09-26 Orders Doctor GEORGES 1.2.840.114 [id number] Univers 00:00:00 00:00:00 Only Unassigned, JAMIA 350.1.13.10 ity of [place] [facility] 4.2.7.2.686 Doug as [phone] [address] 2022-09-22 2022-09-22 Telephone Pcp, [facility] 1.2.811.952 [id number] Univers 00:00:00 00:00:00 Patient ELECTRIC STOP INSTALLER 350.1.13.10 it y of Does Not REGIONAL [place].2.[place] MATERNAL [id number] Med ical & CHILD [address] [place] [address] 2021-04-29 2021-04-29 Office [facility] 1.2.840.114 [id number] Univers 16:25:12 16:50:55 Visit Victoriano Solano 350.1.13.10 [place] [phone] Dc dical nal 092 [facility] 2021-04-29 2021-04-29 Outpatient R VICTORIANO PAEZ [facility] [id number] Univers 16:20:00 16:20:00 VICTORIANO PAEZ [facility] 2021-04-15 2021-04-15 Outpatient R DORYS [facility] [id number] Univers 11:30:00 11:30:00 ANNMARIE corona o f [facility] 2021-03-18 2021-03-18 [facility] 1.2.921.632 [id number] Univers 11:25:44 23:59:00 Encounter Victoriano Solano 350.1.13.10 ity [facility] [place]2.7.2.[place] [id number] [facility] [address] [place] [address] 2021-03-18 2021-03-18 Office Philippe [facility] 1.2.840.114 [id number] Univers 10:25:56 11:06:51 Visit Victoriano Solano 350.1.13.10 ity [facility] 4[place]7.2.[place] [phone] Dc dical nal 092 [facility] 2021-03-18 2021-03-18 Outpatient R VICTORIANO PAEZ [facility] [id number] Univers 10:00:00 10:00:00 VICTORIANO PAEZ [facility] Results Test Description Test Time Test Comments Results Result Comments Source POCT Test 2023-06-09 08:24:00 Test Item Value Reference Range Interpretation Comme nts POCT PREG (test code = 1605) Negative On board controls acceptable with C Line (test code = 3574) Yes Lab Interpretation (test code = 39679-4) Normal [facility] [id number] 08:21:23 Test Item Value Reference Range Interpretation Comments WBC (test code = 9.16 See_Comment [Automated 6690-2) message] The sy stem which generated this result transmitted reference range : 4.30 - 11.10 10*3/?L. The reference range was not used to interpret this result as normal/abnormal . RBC (test code = 4.55 See_Comment [Automated 789-8) message] The sy stem which generated this result transmitted reference range : 3.93 - 5.25 10*6/?L. The reference range was not used to interpret this result as normal/abnormal . HGB (test code = 12.9 g/dL 11.6-15.0 718-7) HCT (test code = 38.1 % 35.7-45.2 4544-3) MCV (test code = 83.7 fL 80.6-95.5 787-2) MCH (test code = 28.4 pg 25.9-32.8 785-6) MCHC (test code = 33.9 g/dL 31.6-35.1 786-4) RDW-SD (test code = 36.0 fL 39.0-49.9 L 23466-6) RDW-CV (test code = 11.9 % 12.0-15.5 L 788-0) PLT (test code = 207 See_Comment [Automated 777-3) message] The sy stem which generated this result transmitted reference range : 166 - 358 10*3/ ?L. The reference r eliz was not used to interpret this result as normal/abnormal . MPV (test code = 10.8 fL 9.5-12.9 82398-4) NRBC/100 WBC (test 0.0 See_Comment [Automat ed code = 3320062474) message] The system which generated this result transmitted reference range : 0.0 - 10.0 /100 WBCs. The refer ence range was not u sed to interpret th is result as normal/abnormal . NRBC x10^3 (test code See_Comment [Auto mated = 2796467520) message] The s ystem which generated this result transmitted reference range : 10*3/?L. The reference range was not used to interpret this result as normal/abnormal . GRAN MAT (NEUT) % 70.5 % (test code = 770-8) IMM GRAN % (test code 0.50 % = 2801691553) LYMPH % (test code = 20.0 % 736-9) MONO % (test code = 7.2 % 5905-5) EOS % (test code = 1.5 % 713-8) BASO % (test code = 0.3 % 706-2) GRAN MAT x10^3(ANC) 6.45 10*3/uL 1.88-7.09 (test code = 8123280108) IMM GRAN x10^3 (test 0.05 10*3/uL 0.00-0.06 code = 5430899036) LYMPH x10^3 (test code 1.83 10*3/uL 1.32-3.29 = 731-0) MONO x10^3 (test code 0.66 10*3/uL 0.33-0.92 = 742-7) EOS x10^3 (test code = 0.14 10*3/uL 0.03-0.39 711-2) BASO x10^3 (test code 0.03 10*3/uL 0.01-0.07 = 704-7) Lab Interpretation Abnormal (test code = 79162-5) [facility] with [id number] 10:42:47 Test Item Value Reference Range Interpretation Comments WBC (test code = 19.67 See_Comment H [Automated 6690-2) message] The system which generated this result transmit elizabeth reference range : 4.30 - 11.10 10*3/?L. The reference range was not used to interpret this result as normal/abnormal . RBC (test code = 3.52 See_Comment L [Automated 789-8) message] The system which generated this result transmit elizabeth reference range : 3.93 - 5.25 10*6/?L. The reference range was not used to interpret this result as normal/abnormal . HGB (test code = 10.2 g/dL 11.6-15.0 L 718-7) HCT (test code = 31.2 % 35.7-45.2 L 4544-3) MCV (test code = 88.6 fL 80.6-95.5 787-2) MCH (test code = 29.0 pg 25.9-32.8 785-6) MCHC (test code = 32.7 g/dL 31.6-35.1 786-4) RDW-SD (test code = 39.2 fL 39.0-49.9 18905-1) RDW-CV (test code = 12.2 % 12.0-15.5 788-0) PLT (test code = 167 See_Comment [Automated 777-3) message] The system which generated this result transmit elizabeth reference range : 166 - 358 10*3/ ?L. The reference range was not u sed to interpret th is result as normal/abnormal . MPV (test code = 11.5 fL 9.5-12.9 78344-1) NRBC/100 WBC (test 0.0 See_Comment [Automat ed code = 2175250268) message] The system which generated this result transmit elizabeth reference range : 0.0 - 10.0 /100 WBCs. The reference range was not used to interpret this result as normal/abnormal . NRBC x10^3 (test code See_Comment [Auto mated = 6590573223) message] The system which generated this result transmit elizabeth reference range : 10*3/?L. The reference range was not used to interpret this result as normal/abnormal . GRAN MAT (NEUT) % 82.9 % (test code = 770-8) IMM GRAN % (test code 2.00 % = 1127341679) LYMPH % (test code = 5.6 % 736-9) MONO % (test code = 8.8 % 5905-5) EOS % (test code = 0.4 % 713-8) BASO % (test code = 0.3 % 706-2) GRAN MAT x10^3(ANC) 16.31 10*3/uL 1.88-7.09 H (test code = 9039306124) IMM GRAN x10^3 (test 0.39 10*3/uL 0.00-0.06 H code = 1344201553) LYMPH x10^3 (test code 1.10 10*3/uL 1.32-3.29 L = 731-0) MONO x10^3 (test code 1.74 10*3/uL 0.33-0.92 H = 742-7) EOS x10^3 (test code = 0.08 10*3/uL 0.03-0.39 711-2) BASO x10^3 (test code 0.05 10*3/uL 0.01-0.07 = 704-7) Lab Interpretation Abnormal (test code = 16779-7) [facility] IMMUNE [id number] 22:00:53 Test Item Value Reference Range Interpretation Comments RHIG CANDIDATE? No- see comment Patient i s not a (test code = candidate for R hIg- 5188) Patient is Rh Positive.Perfor med at [facility] Laboratory Services - [facility] Blood [address] [place] [address] [id number] Free: [phone] A No. [id number] [facility] [id number] 19:07:55 Test Item Value Reference Range Interpretation Comments VENOUS BASE EXCESS, CORD -4.9 mEq/L (test code = 6338563988) VENOUS PH, CORD (test 7.32 7.25-7.45 code = 3439665440) VENOUS PC02, CORD (test 42 See_Comment [Au tomated message] code = 1579398874) The syste m which generated this result transmitted ref erence range: 27 - 49 mmHg. The reference r eliz was not used to interpret this result as normal/abnor mal. VENOUS PO2, CORD (test 15 See_Comment L [Aut omated message] code = 1908763442) The syste m which generated this result transmitted ref erence range: 17 - 41 mmHg. The reference r eliz was not used to interpret this result as normal/abnor mal. VENOUS BICARBONATE, CORD 21 See_Comment [A utomated message] (test code = 3505435668) The system which generated this result transmitted ref erence range: 12 - 29 mEq/L. The reference r eliz was not used to interpret this result as normal/abnor mal. Lab Interpretation (test Abnormal code = 19686-5) [facility] CORD [id number] 19:07:45 Test Item Value Reference Range Interpretation Comments BASE EXCESS, CORD -3.3 mEq/L (test code = 7285688019) AC PH, CORD (BEAKER) 7.32 7.18-7.38 (test code = 0445935723) PC02, CORD (test code 46 See_Comment [Auto mated message] The = 7401858737) system which g enerated this result transmit elizabeth reference range : 32 - 66 mmHg. The refer ence range was not used to interpret this result as normal/abnormal . PO2, CORD (test code 16 See_Comment [Autom ated message] The = 7644373299) system which g enerated this result transmit elizabeth reference range : 10 - 30 mmHg. The refer ence range was not used to interpret this result as normal/abnormal . BICARBONATE, CORD 23 See_Comment [Automate d message] The (test code = system which ge nerated this 1182720788) result transmit elizabeth reference range : 17 - 27 mEq/L. The refe rence range was not used to interpret this result as normal/abnormal . [facility]act[facility] [id number] 17:33:21 Test Item Value Reference Range Interpretation Comments LDH (test code = 5351429628) 173 U/L 120-246 Lab Interpretation (test code = Normal 74231-9) [facility] Acid [id number] 17:33:00 Test Item Value Reference Range Interpretation Comments URIC ACID (test code = 6282439363) 4.1 mg/dL 2.9-6.0 Lab Interpretation (test code = Normal 67623-4) [facility] [id number] 17:33:00 Test Item Value Reference Range Interpretation Comments CREATININE (test code = 0.43 mg/dL 0.50-1.04 L 5871327670) eGFR (test code = 183.6 mL/min/1.73m2 5241472117) AVIS (test code = AVIS) Association of Glomerular Filtration Rate (GFR) and Staging of Kidney Disease* + --+ --+ ------+| GFR (mL/min/1.73 m2) ?| With Kidney Damage ?| ?Without Kidney Damage+ --------+ --------+ +| ?>90 ?| ?Stage one ?| ? Normal ?+ ---+ ---+ -------+| ?60-89 ?| ?Stage two ?| ? Decreased GFR ? + --+ --+ ------+| ?30-59 ?| ?Stage three ?| ? Stage three ? + --+ --+ ------+| ?15-29 ?| ?Stage four ? | ? Stage four ?+ ---+ ---+ -------+| ?<15 (or dialysis) ? ?| ?Stage five ? | ? Stage five ?+ ---+ ---+ -------+ *Each stage assumes the associated GFR level has been in effect for at least three months. ?Stages 1 to 5, with or without kidney disease, indicate chronic kidney disease. Notes: Determination of stages one and two (with eGFR >59mL/min/1.73 m2) requires estimation of kidney damage for at least three months as defined by structural or functional abnormalities of the kidney, manifested by either:Pathological abnormalities or Markers of kidney damage (including abnormalities in the composition of the blood or urine or abnormalities in imaging tests). Lab Interpretation Abnormal (test code = 50548-6) [facility] (Asparate Amino Transfer)2023-02-28 17:33:00 Test Item Value Reference Range Interpretation Comments AST(SGOT) (test code = 5306204444) 19 U/L 13-40 Lab Interpretation (test code = Normal 38847-4) [facility]anine Amino Transferase (SGPT)2023-02-28 17:33:00 Test Item Value Reference Range Interpretation Comments ALTv (test code = 1742-6) 17 U/L 5-35 Lab Interpretation (test code = Normal 86743-4) [facility] with [id number] 17:24:05 Test Item Value Reference Range Interpretation Comments WBC (test code = 22.60 See_Comment H [Automated 9091-2) message] The system which generated this result transmit elizabeth reference range : 4.30 - 11.10 10*3/?L. The reference range was not used to interpret this result as normal/abnormal . RBC (test code = 3.56 See_Comment L [Automated 961-9) message] The system which generated this result transmit elizabeth reference range : 3.93 - 5.25 10*6/?L. The reference range was not used to interpret this result as normal/abnormal . HGB (test code = 10.5 g/dL 11.6-15.0 L 718-7) HCT (test code = 31.2 % 35.7-45.2 L 4544-3) MCV (test code = 87.6 fL 80.6-95.5 787-2) MCH (test code = 29.5 pg 25.9-32.8 785-6) MCHC (test code = 33.7 g/dL 31.6-35.1 786-4) RDW-SD (test code = 38.6 fL 39.0-49.9 L 20470-9) RDW-CV (test code = 12.0 % 12.0-15.5 788-0) PLT (test code = 180 See_Comment [Automated 777-3) message] The system which generated this result transmit elizabeth reference range : 166 - 358 10*3/ ?L. The reference range was not u sed to interpret th is result as normal/abnormal . MPV (test code = 11.4 fL 9.5-12.9 02354-7) NRBC/100 WBC (test 0.0 See_Comment [Automat ed code = 2949935580) message] The system which generated this result transmit elizabeth reference range : 0.0 - 10.0 /100 WBCs. The reference range was not used to interpret this result as normal/abnormal . NRBC x10^3 (test code See_Comment [Auto mated = 5317882097) message] The system which generated this result transmit elizabeth reference range : 10*3/?L. The reference range was not used to interpret this result as normal/abnormal . GRAN MAT (NEUT) % 86.6 % (test code = 770-8) IMM GRAN % (test code 2.00 % = 3124307598) LYMPH % (test code = 4.2 % 736-9) MONO % (test code = 6.9 % 5905-5) EOS % (test code = 0.1 % 713-8) BASO % (test code = 0.2 % 706-2) GRAN MAT x10^3(ANC) 19.57 10*3/uL 1.88-7.09 H (test code = 7385579679) IMM GRAN x10^3 (test 0.46 10*3/uL 0.00-0.06 H code = 5705086549) LYMPH x10^3 (test code 0.94 10*3/uL 1.32-3.29 L = 731-0) MONO x10^3 (test code 1.56 10*3/uL 0.33-0.92 H = 742-7) EOS x10^3 (test code = 0.03-0.39 L 711-2) BASO x10^3 (test code 0.05 10*3/uL 0.01-0.07 = 704-7) BANDS (test code = Increased A 2544211713) Lab Interpretation Abnormal (test code = 82838-9) General acute hospital URINALYSIS W SPECIFIC [id number] 20:33:00 Test Item Value Reference Range Interpretation Comments POCT U SP GRAV (test code = 3255) . 1.005-1.025 POCT PH U (test code = 3254) 5 mg/dl 5-8 POCT U LEUK EST (test code = 1+ Negative - Negative 3) POCT U NIT (test code = 3262) Neg Negative - Negative POCT U PROT (test code = 3259) Trace Negative - Negative POCT U GLU (test code = 3256) Neg Negative - Negative POCT U KETONE (test code = 3258) None Negative - Negative POCT U UROBILI (test code = 3260) . 0.2-1 POCT U BILI (test code = 3261) . Negative - Negative POCT U BLD (test code = 3257) Trace Negative - Negative POCT U COLOR (test code = 3266) . POCT U APPEAR (test code = 3267) General acute hospital URINALYSIS W SPECIFIC [id number] 20:15:00 Test Item Value Reference Range Interpretation Comments POCT U SP GRAV (test code = 3255) . 1.005-1.025 POCT PH U (test code = 3254) . 5-8 POCT U LEUK EST (test code = 3263) . Negative - Negative POCT U NIT (test code = 3262) . Negative - Negative POCT U PROT (test code = 3259) trace Negative - Negative POCT U GLU (test code = 3256) neg Negative - Negative POCT U KETONE (test code = 3258) . Negative - Negative POCT U UROBILI (test code = 3260) . 0.2-1 POCT U BILI (test code = 3261) . Negative - Negative POCT U BLD (test code = 3257) . Negative - Negative POCT U COLOR (test code = 3266) . POCT U APPEAR (test code = 3267) . General acute hospital URINALYSIS W SPECIFIC [id number] 20:17:00 Test Item Value Reference Range Interpretation Comments POCT U SP GRAV (test code = 3255) . 1.005-1.025 POCT PH U (test code = 3254) 5 mg/dl 5-8 POCT U LEUK EST (test code = 2+ Negative - Negative 3263) POCT U NIT (test code = 3262) Neg Negative - Negative POCT U PROT (test code = 3259) Trace Negative - Negative POCT U GLU (test code = 3256) Neg Negative - Negative POCT U KETONE (test code = 3258) None Negative - Negative POCT U UROBILI (test code = 3260) . 0.2-1 POCT U BILI (test code = 3261) . Negative - Negative POCT U BLD (test code = 3257) Trace Negative - Negative POCT U COLOR (test code = 3266) POCT U APPEAR (test code = 3267) General acute hospital URINALYSIS W SPECIFIC [id number] 20:17:00 Test Item Value Reference Range Interpretation Comments POCT U SP GRAV (test code = 3255) . 1.005-1.025 POCT PH U (test code = 3254) 5 mg/dl 5-8 POCT U LEUK EST (test code = 2+ Negative - Negative 3263) POCT U NIT (test code = 3262) Neg Negative - Negative POCT U PROT (test code = 3259) Trace Negative - Negative POCT U GLU (test code = 3256) Neg Negative - Negative POCT U KETONE (test code = 3258) None Negative - Negative POCT U UROBILI (test code = 3260) . 0.2-1 POCT U BILI (test code = 3261) . Negative - Negative POCT U BLD (test code = 3257) Trace Negative - Negative POCT U COLOR (test code = 3266) POCT U APPEAR (test code = 3267) General acute hospital URINALYSIS W SPECIFIC [id number] 19:48:00 Test Item Value Reference Range Interpretation Comments POCT U SP GRAV (test code = 3255) . 1.005-1.025 POCT PH U (test code = 3254) 5 mg/dl 5-8 POCT U LEUK EST (test code = 1+ Negative - Negative 3263) POCT U NIT (test code = 3262) Neg Negative - Negative POCT U PROT (test code = 3259) 1+ Negative - Negative POCT U GLU (test code = 3256) Neg Negative - Negative POCT U KETONE (test code = 3258) None Negative - Negative POCT U UROBILI (test code = 3260) . 0.2-1 POCT U BILI (test code = 3261) . Negative - Negative POCT U BLD (test code = 3257) Trace Negative - Negative POCT U COLOR (test code = 3266) . POCT U APPEAR (test code = 3267) . General acute hospital URINALYSIS W SPECIFIC [id number] 20:20:00 Test Item Value Reference Range Interpretation Comments POCT U SP GRAV (test code = 3255) . 1.005-1.025 POCT PH U (test code = 3254) . 5-8 POCT U LEUK EST (test code = 3263) . Negative - Negative POCT U NIT (test code = 3262) . Negative - Negative POCT U PROT (test code = 3259) 1+ Negative - Negative POCT U GLU (test code = 3256) Neg Negative - Negative POCT U KETONE (test code = 3258) . Negative - Negative POCT U UROBILI (test code = 3260) . 0.2-1 POCT U BILI (test code = 3261) . Negative - Negative POCT U BLD (test code = 3257) . Negative - Negative POCT U COLOR (test code = 3266) . POCT U APPEAR (test code = 3267) General acute hospital URINALYSIS W SPECIFIC [id number] 20:17:00 Test Item Value Reference Range Interpretation Comments POCT U SP GRAV (test code = 3255) . 1.005-1.025 POCT PH U (test code = 3254) . 5-8 POCT U LEUK EST (test code = 3263) . Negative - Negative POCT U NIT (test code = 3262) . Negative - Negative POCT U PROT (test code = 3259) 1+ Negative - Negative POCT U GLU (test code = 3256) Neg Negative - Negative POCT U KETONE (test code = 3258) .. Negative - Negative POCT U UROBILI (test code = 3260) . 0.2-1 POCT U BILI (test code = 3261) . Negative - Negative POCT U BLD (test code = 3257) . Negative - Negative POCT U COLOR (test code = 3266) POCT U APPEAR (test code = 3267) [facility] SPECIFIC [id number] 17:34:00 Test Item Value Reference Range Interpretation Comments POCT U SP GRAV (test code = 3255) . 1.005-1.025 POCT PH U (test code = 3254) . 5-8 POCT U LEUK EST (test code = 3263) . Negative - Negative POCT U NIT (test code = 3262) . Negative - Negative POCT U PROT (test code = 3259) 1+ Negative - Negative POCT U GLU (test code = 3256) Neg Negative - Negative POCT U KETONE (test code = 3258) . Negative - Negative POCT U UROBILI (test code = 3260) . 0.2-1 POCT U BILI (test code = 3261) . Negative - Negative POCT U BLD (test code = 3257) .. Negative - Negative POCT U COLOR (test code = 3266) POCT U APPEAR (test code = 3267) [facility] [id number] 16:54:46 Test Item Value Reference Range Interpretation Comments Syphilis IgG/IgM (test Non-reactive Non-reactive code = 69548-4) AVIS (test code = AVIS) Non-reactive - No serologic evidence of T. pallidum infection. Cannot exclude incubating or early syphilis. Submit a second specimen in 2-4 weeks if syphilis is clinically suspected. Equivocal - Further testing to follow. Reactive - Further testing to follow. Lab Interpretation (test Normal code = 48311-5) [facility] AG-AB WITH [id number] 14:15:26 Test Item Value Reference Range Interpretation Comments HIV 0.07 Negative Semi-quantitative (test code = 44889-7) AVIS (test code = Non-reactive for HIV-1 AVIS) antigen and HIV-1/HIV-2 antibodies. ?No laboratory evidence of HIV infection. ?Repeat in 2-4 weeks if acute HIV infection is suspected. General acute hospital URINALYSIS W SPECIFIC [id number] 14:20:00 Test Item Value Reference Range Interpretation Comments POCT U SP GRAV (test code = 3255) . 1.005-1.025 POCT PH U (test code = 3254) . 5-8 POCT U LEUK EST (test code = 3263) . Negative - Negative POCT U NIT (test code = 3262) . Negative - Negative POCT U PROT (test code = 3259) 1+ Negative - Negative POCT U GLU (test code = 3256) neg Negative - Negative POCT U KETONE (test code = 3258) . Negative - Negative POCT U UROBILI (test code = 3260) . 0.2-1 POCT U BILI (test code = 3261) . Negative - Negative POCT U BLD (test code = 3257) . Negative - Negative POCT U COLOR (test code = 3266) . POCT U APPEAR (test code = 3267) . General acute hospital URINALYSIS W SPECIFIC [id number] 14:23:00 Test Item Value Reference Range Interpretation Comments POCT U SP GRAV (test code = . 1.005-1.025 3255) POCT PH U (test code = 3254) . 5-8 POCT U LEUK EST (test code = . Negative - Negative 3263) POCT U NIT (test code = 3262) . Negative - Negative POCT U PROT (test code = 3259) trace Negative - Negative POCT U GLU (test code = 3256) negative Negative - Negative POCT U KETONE (test code = 3258) . Negative - Negative POCT U UROBILI (test code = . 0.2-1 3260) POCT U BILI (test code = 3261) . Negative - Negative POCT U BLD (test code = 3257) . Negative - Negative POCT U COLOR (test code = 3266) . POCT U APPEAR (test code = 3267) . General acute hospital URINALYSIS W SPECIFIC [id number] 22:40:00 Test Item Value Reference Range Interpretation Comments POCT U SP GRAV (test code = 3255) . 1.005-1.025 POCT PH U (test code = 3254) . 5-8 POCT U LEUK EST (test code = 3263) . Negative - Negative POCT U NIT (test code = 3262) . Negative - Negative POCT U PROT (test code = 3259) trace Negative - Negative POCT U GLU (test code = 3256) normal Negative - Negative POCT U KETONE (test code = 3258) . Negative - Negative POCT U UROBILI (test code = 3260) . 0.2-1 POCT U BILI (test code = 3261) . Negative - Negative POCT U BLD (test code = 3257) . Negative - Negative POCT U COLOR (test code = 3266) . POCT U APPEAR (test code = 3267) . [facility] WORKUP, BLOOD [id number] 09:44:32 Test Item Value Reference Range Interpretation Comments ABO & RH (test code B POSITIVE Performe d at [facility] = 20) Laboratory [facility] [id number] Free: [phone] A No. [id number] IAT (test code = Negative Performed a t [facility] 1185) Laboratory [facility] s [id number] Free: [phone] A No. [id number] General acute hospital URINALYSIS W/O SPECIFIC [id number] 21:17:00 Test Item Value Reference Range Interpretation Comments POCT PH U (test code = 3254) 5 mg/dl 5-8 POCT U LEUK EST (test code = 2+ Negative - Negative 3263) POCT U NIT (test code = 3262) negative Negative - Negative POCT U PROT (test code = 3259) 1+ Negative - Negative POCT U GLU (test code = 3256) negative Negative - Negative POCT U KETONE (test code = 3258) negative Negative - Negative POCT U BLD (test code = 3257) negative Negative - Negative [facility] [id number] 21:15:00 Test Item Value Reference Range Interpretation Comments POCT PREG (test code = 1605) Positive On board controls acceptable with C Yes Line (test code = 3574) POCT PREG LOT # (test code = 3575) POCT PREG TEST DATE (test code = 3576) [facility] C[facility] 2 [id number] 17:03:18 On the lateral view, cervical spine can be [...] and swimmer's views of the cervical spine wereobtained.COMPARISON: None.IMPRESSIONOn the lateral view, cervical spine can be visualized to the level of C7. Postsurgical changes of C6-T2 posterior spinal fusion and plate andscrewfixation of the left clavicle.No definite acute fracture or traumatic malalignment of the cervical spineis identified. No abnormal prevertebral soft tissue swelling is identified. Prior exam is not available for comparison purposes.[facility] Notes Date/Time Note Provider Source 2023-06-10 Formatting of this note might be differe nt from the original. Bobbi Pete [facility] - Health 10:35:41-00:00 Patient thought procedure wa s scheduled for tomorrow. Patient educated that patient is to see surgeon tomorrow to discuss possible surgery and all her questions regarding the surgery will be answered at [facility] that time. Reviewed ED prec autions, patient verbalizes understanding to all instruction. 2023-06-09 Formatting of this note might be differe nt from the original. Pooja Madden [facility] 10:04:41-00:00 Katerin Taveras is a 22 year old female Pt calling requesting a call back regarding some questions about procedure on 06/11. Pt is wanting to know the re covery time and clarification on whether she will be held is so how long will she be there. Pt was just wondering so she is able to request time off for work. Pt added mothers number if in case the pts phone dies. Please call 2023-06-09 [facility] 05:50:47-00:00 Pt given printed and verbal discharge instructions regarding gallstones, encouraged hydration. Prescriptions provided. Pt verbalized understanding of instructions, pt awake alert oriented, resp reg unlabored, skin w/d, color appropriate for race, moves all ext well,pt encouraged to follow up with pcp. Advised to seek medical attention for new/prolo nged/worsening of symptoms. No adverse reaction to meds given in ER noted up on discharge. PIV d'cd, dressing to site, catheter in tact. Awake, alert oriented, resp reg unlabored, skin w/d, pt leaving amb with steady gait, in no apparent distress. 2023-06-09 Formatting of this note might be differe nt from the original. Rajni Gaspar RN [facility] 02:53:00-00:00 Patient states: "I've been h aving upper abdominal pain since midnight, it woke me up from sleep. I feel very nauseated and I vomited twice before I got here."
[2023-06-10 23:20] LABS: Albumin 3.8 g/dL (3.4-5.0); Bilirubin Total 0.5 mg/dL (0.2-1.0); Protein, Total 7.4 g/dL (6.4-8.2)
[2023-06-10 23:28] LABS: Specific Gravity 1.032 (1.005-1.030)
[2023-06-10 23:28] LABS: Absolute Lymphocytes (CBC) 1.3 K/uL (0.7-4.9); Hematocrit 36.1 % (36.0-45.0); Lymphocytes % 11.8 % (15.3-44.8); MCV 83.5 fL (80-100); MPV 8.9 fL (7.6-11.3); Platelets 202 thou/uL (152-406); RBC Red Blood Cell Count 4.33 M/uL (3.86-4.86)
[2023-06-10 23:32] LABS: Specific Gravity > 1.030 (1.005-1.030); Urine Bacteria None Seen /HPF (<20); Urine Bilirubin NEGATIVE (Negative); Urine Blood Negative (Negative); Urine Clarity Clear (Clear); Urine Color Yellow (Yellow); Urine Glucose NEGATIVE (Negative); Urine Protein TRACE (Negative); Urine RBC <5 /HPF (None Seen); Urine Urobilinogen Normal (Normal)
--- NOTE | 2023-06-10 23:49 | ER ---
Nurse's Notes [facility] Name: Katerin Nix Age: 22 yrs Sex: Female : 2000 Arrival Date: 06/10/2023 Time: 22:02 Bed 7 Private MD: Diagnosis: Other cholelithiasis without obstruction Presentation: 06/10 22:11 Chief complaint: EMS states: "Toned out for abdominal pain, N/V that started around mb9 2044 this evening Pt went to [facility] yesterday and was diagnosed with Gallstones. Pt has appointment with surgeon at [facility] tomorrow. Gave 600 mg of Ibuprofen". Coronavirus screen: Vaccine status: Patient reports being unvaccinated. Ebola Screen: No symptoms or risks identified at this time. Initial Sepsis Screen: Does the patient meet any 2 criteria? No. Patient's initial sepsis screen is negative. Does the patient have a suspected source of infection? No. Patient's initial sepsis screen is negative. Risk Assessment: Do you want to hurt yourself or someone else? Patient reports no desire to harm self or others. Onset of symptoms was June 10, 2023. 22:11 Method Of Arrival: EMS: [facility] mb9 22:11 Acuity: MAYRA 3 mb9 Triage Assessment: 22:14 General: Appears uncomfortable, Behavior is cooperative. Pain: Complains of pain in mb9 abdomen Pain does not radiate. Pain currently is 7 out of 10 on a pain scale. Quality of pain is described as stabbing, Pain began suddenly, Is continuous. Neuro: Gaspar Agitation-Sedation Scale (RASS): 0 - Alert and Calm Level of Consciousness is awake, alert, obeys commands, Oriented to person, place, time, situation, Appropriate for age. Cardiovascular: Patient's skin is warm and dry. Respiratory: Airway is patent Respiratory effort is even, unlabored, Respiratory pattern is regular, symmetrical. GI: Abdomen is round non-distended, Bowel sounds present X 4 quads. Abd is soft Abdomen is tender to palpation in epigastric area Reports nausea, vomiting. : No signs and/or symptoms were reported regarding the genitourinary system. Derm: Skin is pink, warm \\T\\ dry. Musculoskeletal: Range of motion: intact in all extremities. 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 - Social history:: Smoking status: Patient denies any tobacco usage or history of. Screenin:[address] [facility] ED Fall Risk Assessment (Adult) History of falling in the last 3 months, mb9 including since admission No falls in past 3 months (0 pts) Confusion or Disorientation No (0 pts) Intoxicated or Sedated No (0 pts) Impaired Gait No (0 pts) Mobility Assist Device Used No (0 pt) Altered Elimination No (0 pt) Score/Fall Risk Level 0 - 2 = Low Risk Oriented to surroundings, Maintained a safe environment, Educated pt \\T\\ family on fall prevention, incl call for assistance when getting out of bed. Abuse screen: Denies threats or abuse. Nutritional screening: No deficits noted. Tuberculosis screening: No symptoms or risk factors identified. Assessment: 22:15 Reassessment: see triage assessment. mb9 23:03 Reassessment: No changes from previously documented assessment. Patient and/or family mb9 updated on plan of care and expected duration. Pain level reassessed. Patient is alert, oriented x 3, equal unlabored respirations, skin warm/dry/pink. 23:04 Reassessment: Pt taken to ultrasound via wheelchair. mb9 06/11 00:00 Reassessment: Patient and/or family updated on plan of care and expected duration. Pain mb9 level reassessed. Patient is alert, oriented x 3, equal unlabored respirations, skin warm/dry/pink. Patient denies pain at this time. Patient states feeling better. Vital Signs: 06/10 22:11 BP 115 / 60; Pulse 65; Resp 18; Temp 98.3(O); Pulse Ox 100% on R/A; Weight 90.72 kg; mb9 Height 5 ft. 7 in. ; Pain 7/10; 23:02 BP 118 / 66; Pulse 74; Resp 16; Pulse Ox 100% on R/A; mb9 22:11 Body Mass Index 31.32 (90.72 kg, 170.18 cm) mb9 22:11 Pain Scale: Adult mb9 ED Course: 22:10 Patient arrived in ED. mb9 22:13 Triage completed. mb9 22:13 Arm band placed on. mb9 22:14 Luli Abraham FNP-C is [facility]. kb 22:14 Nahid Clarke MD is Attending Physician. kb 22:16 Placed in gown. Bed in low position. Call light in reach. Side rails up X 1. Client mb9 placed on continuous cardiac and pulse oximetry monitoring. NIBP monitoring applied. residential monitor on. 22:17 Dana Mora, RN is Primary Nurse. mb9 22:17 No provider procedures requiring assistance completed. mb9 22:49 CBC with Diff Sent. mb9 22:49 CMP Sent. mb9 22:49 Lipase Sent. mb9 23:02 Urinalysis w/ reflexes Sent. mb9 23:02 Test, Urine Sent. mb9 23:25 Abdomen Limited US In Process Unspecified. EDMS 06/11 00:00 Patient did not have IV access during this emergency room visit. mb9 Administered Medications: 06/10 23:59 Drug: Potassium Chloride PO 40 mEq Route: PO; mb9 06/11 00:00 Follow up: Response: No adverse reaction mb9 06/10 23:59 Drug: [place] PO 10 mg-325 mg 1 tabs Route: PO; mb9 06/11 00:00 Follow up: Response: No adverse reaction mb9 06/10 23:59 Drug: Ondansetron PO 4 mg Route: PO; mb9 23:59 Follow up: Response: No adverse reaction mb9 Medication: 22:17 VIS not applicable for this client. mb9 Outcome: 23:49 Discharge ordered by . kb 06/11 00:00 Discharged to home ambulatory, with family. mb9 Condition: stable Discharge instructions given to patient, Instructed on discharge instructions, follow up and referral plans. 00:00 Patient left the ED. mb9 Signatures: Dispatcher [employer] EDLA Luli Abraham FNP-C FNP-Ckb Breneman, Mary Beth, RN RN rebecca9
--- NOTE | 2023-06-10 23:50 | EDPHYS ---
Physician Documentation [facility] Name: Katerin Nix Age: 22 yrs Sex: Female : 2000 Arrival Date: 06/10/2023 Time: 22:02 Bed 7 Private MD: ED Physician Nahid Clarke HPI: 06/10 23:59 This 22 yrs old Female presents to ER via EMS with unknown complaint. kb 23:59 This 22 yrs old Female presents to ER via EMS with complaints of upper abd kb pain. 23:59 The patient presents with abdominal pain in the upper abdomen. Onset: The kb symptoms/episode began/occurred just prior to arrival. The symptoms do not radiate. Associated signs and symptoms: Pertinent positives: nausea and vomiting. The symptoms are described as constant. Modifying factors: The symptoms are alleviated by nothing, the symptoms are aggravated by nothing. Severity of pain: At its worst the pain was moderate in the emergency department the pain is unchanged. The patient has experienced similar episodes in the past. The patient has been recently seen by a physician:. Pt reports she was diagnosed with gallstones at [facility]. Has appt with general surgeon tomorrow morning. 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 - Social history:: Smoking status: Patient denies any tobacco usage or history of. ROS: 23:58 Constitutional: Negative for fever, chills, and weight loss. kb 23:58 Abdomen/GI: Positive for abdominal pain, nausea and vomiting, Negative for diarrhea, constipation. 23:58 All other systems are negative. Exam: 23:59 Constitutional: This is a well developed, well nourished patient who is awake, alert, kb and in no acute distress. Head/Face: Normocephalic, atraumatic. ENT: Moist Mucous membranes Cardiovascular: Regular rate and rhythm with a normal S1 and S2. No gallops, murmurs, or rubs. No pulse deficits. Respiratory: Respirations even and unlabored. No increased work of breathing. Talking in full sentences Skin: Warm, dry with normal turgor. Normal color. MS/ Extremity: Pulses equal, no cyanosis. Neurovascular intact. Full, normal range of motion. Neuro: Awake and alert, GCS 15, oriented to person, place, time, and situation. Moves all extremities. Normal gait. 23:59 Abdomen/GI: Inspection: abdomen appears normal, Bowel sounds: normal, Palpation: soft, in all quadrants, mild abdominal tenderness, in the right upper quadrant and left upper quadrant. Vital Signs: 22:11 BP 115 / 60; Pulse 65; Resp 18; Temp 98.3(O); Pulse Ox 100% on R/A; Weight 90.72 kg; mb9 Height 5 ft. 7 in. ; Pain 7/10; 23:02 BP 118 / 66; Pulse 74; Resp 16; Pulse Ox 100% on R/A; mb9 22:11 Body Mass Index 31.32 (90.72 kg, 170.18 cm) mb9 22:11 Pain Scale: Adult mb9 MDM: 22:14 Patient medically screened. kb 22:14 Differential diagnosis: cholecystitis, Cholelithiasis, gastroesophageal reflux disease, kb pancreatitis. Data reviewed: vital signs, nurses notes. Historians other than the Patient: EMS: [facility]. 23:59 Management of patient was discussed with the following: Dr Clarke, recommends kb outpatient followup. Counseling: I had a detailed discussion with the patient and/or guardian regarding the historical points, exam findings, and any diagnostic results supporting the discharge/admit diagnosis, lab results, radiology results, the need for outpatient follow up, a general surgeon, to return to the emergency department if symptoms worsen or persist or if there are any questions or concerns that arise at home. ED course: Pt has appt with general surgeon at [facility] tomorrow. 06/10 22:14 Order name: CBC with Diff; Complete Time: 23:30 kb 06/10 22:14 Order name: CMP; Complete Time: 23:24 kb 06/10 22:14 Order name: Lipase; Complete Time: 23:24 kb 06/10 22:14 Order name: Test, Urine; Complete Time: 23:29 kb 06/10 22:14 Order name: Urinalysis w/ reflexes; Complete Time: 23:33 kb 06/10 22:14 Order name: Abdomen Limited US kb 06/10 22:14 Order name: IV Saline Lock; Complete Time: 23:02 kb 06/10 22:14 Order name: Labs collected and sent; Complete Time: 22:49 kb Administered Medications: 23:59 Drug: Potassium Chloride PO 40 mEq Route: PO; mb9 06/11 00:00 Follow up: Response: No adverse reaction mb9 06/10 23:59 Drug: [place] PO 10 mg-325 mg 1 tabs Route: PO; mb9 06/11 00:00 Follow up: Response: No adverse reaction mb9 06/10 23:59 Drug: Ondansetron PO 4 mg Route: PO; mb9 23:59 Follow up: Response: No adverse reaction mb9 Disposition: 06/11 01:44 Co-signature as Attending Physician, Nahid Clarke MD I agree with the assessment and kdr plan of care. Disposition Summary: 06/10/23 23:49 Discharge Ordered Location: Home kb Condition: Stable kb Diagnosis - Other cholelithiasis without obstruction kb Followup: kb - With: Emergency Department - When: As needed - Reason: Worsening of condition Followup: kb - With: Private Physician - When: 2 - 3 days - Reason: Recheck today's complaints, Continuance of care, Re-evaluation by your physician Discharge Instructions: - Discharge Summary Sheet kb - Cholelithiasis, [id number] kb Forms: - Medication Reconciliation Form kb - Thank You Letter kb - Antibiotic Education kb - Prescription Opioid Use kb - Patient Portal Instructions kb - Leadership Thank You Letter kb Signatures: Dispatcher [employer] Luli Kenyon, DESPATCHING AND RECEIVING CLERK-C DESPATCHING AND RECEIVING CLERK-aNhid Long MD MD kdr Breneman, Mary Beth, RN RN mb9
[2023-06-11] MEDS ORDERED: ONDANSETRON 4 MG (ODT) TAB ONE (00:04)
[2023-06-11] MEDS ORDERED: POTASSIUM CL SA 10 MEQ TAB PO ONE (00:04)
[2023-06-11] MEDS ORDERED: HYDROCODONE/APAP 10/325 TAB ONE (00:04)
[2023-06-11 00:22] VITALS: TEMP 98.3; O2SAT 100
[2023-06-11 00:23] VITALS: BP 118/66
--- NOTE | 2023-06-12 12:59 | RAD REPORT ---
EXAM DESCRIPTION: US - Abdomen Exam Limited - 06/10/2023 11:23 pm CLINICAL HISTORY: 22 years Female ABD PAIN COMPARISON: None TECHNIQUE: Real-time sonography of the right upper abdomen was performed. FINDINGS: Echogenic foci with posterior shadowing are seen within the gallbladder consistent with ga llstones. Additional echogenic debris consistent with sludge. Gallbladder wall measures 3 mm. No flui d is seen adjacent to the gallbladder. Common bile duct measured 4 mm. IMPRESSION: Gallstones and sludge within the gallbladder. Otherwise unremarkable study. Electronically signed by: Melody Cabral MD 06/10/2023 11:41 PM CDT Due to temporary technical issues with the PACS/Fluency reporting system, reports are being signed by the in house radiologists without review as a courtesy to insure prompt reporting. The interpreting radiologist is fully responsible for the content of the report.
== END 2023-06-11 | disposition home or self-care (01) ==
LOC: ER 22:02
DX: K80.80 Other cholelithiasis without obstruction (principal)
CPT/HCPCS: 85025; 81001; 36415; 81025; 83690; 80053; 76705; 99284; Q0162